=== PATIENT | female | born 1995 | race Caucasian/White ===

== ENCOUNTER 2020-11-15 10:37 | Outpatient (REF) | payer OTHER, SELFPAY ==
[2020-11-15 12:48] LABS: TSH reflex Free T4 0.44 mIU/mL (0.32-4.0)
[2020-11-16 09:02] LABS: Prolactin 7.5 ng/mL
[2020-11-16 13:20] LABS: BV Int Neg Control Negative (Negative); BV Int Pos Control Positive (Positive)
[2020-11-16 17:43] LABS: C. trachomatis RNA TMA NOT DETECTED (NOT DETECTED); N. gonorrhoeae RNA TMA NOT DETECTED (NOT DETECTED)
[2020-11-18 08:04] LABS: HIV AB/AG Nonreactive (Nonreactive); HIV Num 1 0.05 S/CO (0.00-0.99)
[2020-11-18 08:24] LABS: HBsAGNum1 0.17 S/CO (0.00-0.99); Hepatitis B Surface Antigen Negative (Negative)
[2020-11-18 14:26] LABS: Syphilis Screen Nonreactive (Nonreactive)
== END 2020-11-15 10:38 | disposition home or self-care (01) ==
LOC: HO.LAB 10:37
PROVIDERS: PCP Internal Medicine; Visit Provider Obstetrics & Gynecology
DX: Z01.411 Encounter for gynecological examination (general) (routine) with abnormal findings (principal); Z11.3 Encounter for screening for infections with a predominantly sexual mode of transmission; N93.9 Abnormal uterine and vaginal bleeding, unspecified; N91.2 Amenorrhea, unspecified
CPT/HCPCS: 36415; 84146; 84443; 86780; 87340; 87389; 87480; 87491; 87510; 87591; 87660; 88142

== ENCOUNTER → 2020-11-29 11:01 | Outpatient (BNVA) | payer OTHER, SELFPAY | PROVIDERS: PCP Internal Medicine; Visit Provider Obstetrics & Gynecology ==

== ENCOUNTER 2021-02-17 09:43 | Outpatient (REF) | payer OTHER, SELFPAY ==
[2021-02-18 06:00] LABS: CT PCR NOT DETECTED (Not Detect.); NG PCR NOT DETECTED (Not Detect.)
[2021-02-18 12:35] LABS: BV Int Neg Control Negative (Negative); BV Int Pos Control Positive (Positive)
== END 2021-02-17 09:44 | disposition home or self-care (01) ==
LOC: HO.LAB 09:43
PROVIDERS: PCP Internal Medicine; Visit Provider Obstetrics & Gynecology
DX: Z11.3 Encounter for screening for infections with a predominantly sexual mode of transmission (principal); N76.0 Acute vaginitis
CPT/HCPCS: 87480; 87491; 87510; 87591; 87660; 99212

== ENCOUNTER → 2021-05-06 12:47 | Outpatient (BNVA) | payer OTHER, SELFPAY | PROVIDERS: PCP Internal Medicine; Visit Provider Obstetrics & Gynecology ==

== ENCOUNTER 2021-07-02 12:37 | Outpatient (REF) | payer OTHER, SELFPAY ==
[2021-07-02 13:51] LABS: Appearance Urine CLEAR; Color Urine YELLOW; Glucose Urine UA NEG (NEG); Leukocyte Esterase Urine 3+ (NEG); Nitrite Urine POS (NEG); UACC Culture Trigger YES; Urine Blood 3+ (NEG); Urine Ketones NEG (NEG); Urine Protein TRACE MG/DL (NEG-TRACE)
[2021-07-02 14:06] LABS: Bacteria Urine 2+ /LPF; Granular Casts Urine 0-2 /LPF; Squamous Epithelial Cell Urine 3+ /LPF
== END 2021-07-02 12:38 | disposition home or self-care (01) ==
LOC: HO.LAB 12:37
PROVIDERS: PCP Internal Medicine; Visit Provider Internal Medicine
DX: R30.0 Dysuria (principal)
CPT/HCPCS: 81001; 87086; 87088; 87186

== ENCOUNTER 2021-12-23 12:40 | Outpatient (REF) | payer OTHER, SELFPAY ==
[2021-12-23 13:47] LABS: MANUAL DIFF FLAG NO
[2021-12-23 13:52] LABS: Basophils Percent Auto 0.3 % (0-2); Eosinophils Absolute Auto 0.2 X10*3/uL (0.0-0.4); Eosinophils Percent Auto 1.5 % (0-4); Hematocrit 38.8 % (37.0-47.0); Hemoglobin 13.1 g/dl (12.0-16.0); Imm Gran Abs Auto 0.06 X10*3/uL (0.00-0.03); Imm Gran Pct Auto 0.5 % (0.0-0.4); Lymphocytes Percent Auto 25.4 % (20-40); Mean Corpuscular HGB Conc 33.8 g/dl (31.0-35.0); Mean Corpuscular Hemoglobin 29.6 pg (27.0-33.0); Mean Corpuscular Volume 87.6 fL (80.0-98.0); Mean Platelet Volume 10.2 fL (9.4-12.3); Monocytes Absolute Auto 0.8 X10*3/uL (0.1-1.2); Monocytes Percent Auto 6.9 % (2-11); Neutrophils Absolute Auto 7.7 x10*3/uL (2.0-8.3); Neutrophils Percent Auto 65.4 % (45-73); Platelet Count 336 X10*3/uL (160-400); Red Blood Count 4.43 X10*6/uL (4.20-5.50); Red Cell Distribution Width 12.9 % (11.0-16.0); White Blood Count 11.8 X10*3/uL (4.8-10.8)
[2021-12-23 13:57] LABS: INTERNATIONAL NORM RATIO 1.1 (0.9-1.1); Prothrombin Time 12.5 SEC (9.9-13.0)
[2021-12-23 14:00] LABS: Partial Thromboplastin Time 42.4 SEC (24.1-38.0)
[2021-12-23 14:24] LABS: Alanine Aminotransferase 15 U/L (0-31); Albumin Level 4.2 g/dL (3.5-5.0); Alkaline Phosphatase 80 U/L (39-117); Anion Gap 12 (12-20); Aspartate Amino Transferase 16 U/L (5-31); Bilirubin Total 0.4 mg/dL (0.0-1.0); Blood Urea Nitrogen 11 mg/dL (9-16); Calcium 9.8 mg/dL (8.4-10.2); Carbon Dioxide 24 mmol/L (22-29); Chloride 105 mmol/L (96-108); Estimated Glomerular Filt Rate > 60; Glucose Random 74 mg/dL (60-115); Potassium 4.1 mmol/L (3.3-5.1); Sodium 137 mmol/L (135-145); Total Protein 7.3 g/dL (6.5-8.0)
[2021-12-23 14:31] LABS: HCG Quantitative < 2 mIU/mL; TSH reflex Free T4 0.79 uIU/mL (0.32-4.0)
[2021-12-24 08:02] LABS: HIV AB/AG Nonreactive (Nonreactive); HIV Num 1 0.07 S/CO (0.00-0.99)
[2021-12-24 13:02] LABS: LDL Cholesterol Direct 125 mg/dL (<100)
== END 2021-12-23 12:41 | disposition home or self-care (01) ==
LOC: HO.HMGCLDS 12:40
PROVIDERS: PCP Internal Medicine; Visit Provider Internal Medicine
DX: Z01.818 Encounter for other preprocedural examination (principal); Z11.4 Encounter for screening for human immunodeficiency virus [HIV]; E66.09 Other obesity due to excess calories
CPT/HCPCS: 36415; 80053; 83721; 84443; 84702; 85025; 85610; 85730; 87389

== ENCOUNTER 2022-01-02 10:20 | Outpatient (REF) | payer OTHER, SELFPAY ==
--- NOTE | ~2022-01-02 | XR_ITS ---
EXAMINATION: XR CHEST CLINICAL INFORMATION: Preop COMPARISON: Chest x-ray January 2020 TECHNIQUE: 2 views of the chest were obtained. FINDINGS: No significant abnormality is noted involving the heart, lungs, mediastinum, bony thorax or soft tissues. XR/XR chest 2V IMPRESSION: Unremarkable examination.
--- NOTE | 2022-01-02 11:02 | ECG_ITS ---
Test Reason : PREOP Blood Pressure : / mmHG Vent. Rate : 081 BPM Atrial Rate : 081 BPM P-R Int : 136 ms QRS Dur : 082 ms QT Int : 376 ms P-R-T Axes : 009 054 026 degrees QTc Int : 436 ms Normal sinus rhythm Normal ECG When compared with ECG of 27-MAR-2017 19:20, Vent. rate has decreased BY 49 BPM T wave amplitude has increased in Lateral leads Referred By: Faisal De León Electronically Signed By:VIKAS WINTERS
[2022-01-02 11:18] LABS: MANUAL DIFF FLAG NO
[2022-01-02 11:39] LABS: Basophils Percent Auto 0.5 % (0-2); Eosinophils Absolute Auto 0.2 X10*3/uL (0.0-0.4); Eosinophils Percent Auto 2.3 % (0-4); Hematocrit 42.3 % (37.0-47.0); Hemoglobin 13.8 g/dl (12.0-16.0); Imm Gran Abs Auto 0.01 X10*3/uL (0.00-0.03); Imm Gran Pct Auto 0.1 % (0.0-0.4); Lymphocytes Absolute Auto 2.4 X10*3/uL (1.2-4.9); Lymphocytes Percent Auto 33.2 % (20-40); Mean Corpuscular HGB Conc 32.6 g/dl (31.0-35.0); Mean Corpuscular Hemoglobin 29.3 pg (27.0-33.0); Mean Corpuscular Volume 89.8 fL (80.0-98.0); Mean Platelet Volume 9.9 fL (9.4-12.3); Monocytes Absolute Auto 0.7 X10*3/uL (0.1-1.2); Monocytes Percent Auto 8.8 % (2-11); Neutrophils Percent Auto 55.1 % (45-73); Platelet Count 370 X10*3/uL (160-400); Red Blood Count 4.71 X10*6/uL (4.20-5.50); Red Cell Distribution Width 12.8 % (11.0-16.0); White Blood Count 7.4 X10*3/uL (4.8-10.8)
[2022-01-02 11:48] LABS: INTERNATIONAL NORM RATIO 1.1 (0.9-1.1); Prothrombin Time 12.1 SEC (9.9-13.0)
[2022-01-02 11:51] LABS: Partial Thromboplastin Time 41.8 SEC (24.1-38.0)
[2022-01-02 11:55] LABS: Estimated Average Glucose 97 mg/dL
[2022-01-02 12:07] LABS: Appearance Urine CLEAR; Color Urine YELLOW; Glucose Urine UA NEG (NEG); Leukocyte Esterase Urine NEG (NEG); Nitrite Urine NEG (NEG); PH 6.5 (5.0-8.0); Urine Blood NEG (NEG); Urine Ketones NEG (NEG); Urine Protein NEG (NEG-TRACE)
[2022-01-02 12:16] LABS: Alanine Aminotransferase 15 U/L (0-31); Albumin Level 4.4 g/dL (3.5-5.0); Alkaline Phosphatase 87 U/L (39-117); Anion Gap 12 (12-20); Aspartate Amino Transferase 16 U/L (5-31); Bilirubin Total 0.6 mg/dL (0.0-1.0); Blood Urea Nitrogen 11 mg/dL (9-16); Calcium 10.1 mg/dL (8.4-10.2); Carbon Dioxide 25 mmol/L (22-29); Chloride 105 mmol/L (96-108); Estimated Glomerular Filt Rate > 60; Glucose Random 88 mg/dL (60-115); Potassium 4.4 mmol/L (3.3-5.1); Sodium 138 mmol/L (135-145); Total Protein 7.6 g/dL (6.5-8.0)
[2022-01-02 12:27] LABS: HIV AB/AG Nonreactive (Nonreactive); HIV Num 1 0.06 S/CO (0.00-0.99)
[2022-01-02 12:31] LABS: HCG Quantitative < 2 mIU/mL; Thyroid Stimulating Hormone 0.55 uIU/mL (0.32-4.0)
== END 2022-01-02 10:21 | disposition home or self-care (01) ==
LOC: HO.XRAY 10:20
PROVIDERS: PCP Internal Medicine; Visit Provider Plastic Surgery
DX: Z01.818 Encounter for other preprocedural examination (principal)
CPT/HCPCS: 36415; 71046; 80053; 81003; 83036; 84436; 84443; 84481; 84702; 85025; 85610; 85730; 87389; 93005

== ENCOUNTER 2022-02-08 17:45 | Inpatient (IN) | payer OTHER, SELFPAY ==
--- NOTE | ~2022-02-08 | CT_ITS ---
EXAMINATION: CT ABDOMEN AND PELVIS WITH CONTRAST CLINICAL INFORMATION: Abdominal wall infection postoperatively COMPARISON: None TECHNIQUE: Multidetector volumetric images were obtained from the superior aspect of the liver through the pubic symphysis following administration 85 mL of Omnipaque 350 intravenous contrast. Sagittal and coronal reformatted images were obtained on the technologist's workstation. Oral contrast: No This CT examination was performed using dose optimization techniques as appropriate, variously including the following: *Automated exposure control *Adjustment of mA and/or kV according to patient size (this includes techniques or standardized protocols for targeted exams where dose is matched to indication/reason for exam; i.e. extremities or head) *Use of iterative reconstruction technique DLP: 663 mGy-cm FINDINGS: LUNG BASES: The visualized lung bases are unremarkable. LIVER, GALLBLADDER, AND BILIARY TREE: The liver is normal in size, shape, and attenuation. No focal hepatic lesion or biliary ductal dilatation is present. The gallbladder is unremarkable with no evidence of radiopaque gallstones, gallbladder wall thickening, or obvious pericholecystic inflammatory changes. PANCREAS: Unremarkable. SPLEEN: Unremarkable. ADRENAL GLANDS: Unremarkable. KIDNEYS AND URETERS: The kidneys are normal in size, shape, and attenuation. No hydronephrosis or hydroureter. 0.4 cm left upper pole renal calculus is 9 cm from the posterior axillary line. There is also a 0.2 cm left midpole calculus. BLADDER: Unremarkable. GASTROINTESTINAL TRACT: The stomach is unremarkable. Normal caliber of the small bowel. No obstruction. Normal appendix. No colonic wall thickening or inflammation. No free air. No free fluid. ABDOMINAL WALL: Postsurgical appearance of the abdominal wall. Diffuse anasarca. There are multiple areas of gas and fluid along the abdominal wall, greatest in the left anterior abdominal wall. No rim-enhancing collection seen at this time in this area. There is more dependent fluid along the posterior abdominal wall, superficial to the paraspinal musculature. This has a thin wall, suggestive of developing collection. This measures approximately 19 cm transverse by 2 cm AP by 18 cm CC . LYMPH NODES: Normal. VASCULAR: Unremarkable. PELVIC VISCERA: The uterus and adnexa are unremarkable. OSSEOUS STRUCTURES: No acute or suspicious osseous abnormality. CT/CT abdomen pelvis w con IMPRESSION: Diffuse edema throughout the abdominal wall with multiple foci of gas. Along the posterior abdominal wall there appears to be early thinwall formation surrounding an area of fluid which could represent early collection. Nonobstructing left renal calculi. Fleischner guidelines were followed.
--- NOTE | ~2022-02-08 | XR_ITS ---
EXAMINATION: XR CHEST CLINICAL INFORMATION: Short of breath COMPARISON: 01/02/2022 TECHNIQUE: Frontal view of the chest was obtained. FINDINGS: Cardiac leads overlie the chest. The lungs are well expanded. There is no focal consolidation, edema, or effusion. No pneumothorax. The cardiomediastinal silhouette is within normal limits. No acute osseous abnormality. XR/XR chest 1V IMPRESSION: Clear lungs.
[2022-02-08 18:04] VITALS: BP 134/78; PULSE 127; RESP 18; TEMP 37.2; O2SAT 98; BMI 35.9
[2022-02-08 18:13] LABS: MANUAL DIFF FLAG NO
[2022-02-08 18:14] LABS: Basophils Percent Auto 0.1 % (0-2); Eosinophils Absolute Auto 0.1 X10*3/uL (0.0-0.4); Eosinophils Percent Auto 0.7 % (0-4); Hematocrit 29.6 % (37.0-47.0); Hemoglobin 9.9 g/dl (12.0-16.0); Imm Gran Abs Auto 0.09 X10*3/uL (0.00-0.03); Imm Gran Pct Auto 0.6 % (0.0-0.4); Lymphocytes Absolute Auto 1.8 X10*3/uL (1.2-4.9); Lymphocytes Percent Auto 11.2 % (20-40); Mean Corpuscular HGB Conc 33.4 g/dl (31.0-35.0); Mean Corpuscular Hemoglobin 29.6 pg (27.0-33.0); Mean Corpuscular Volume 88.4 fL (80.0-98.0); Mean Platelet Volume 8.2 fL (9.4-12.3); Monocytes Absolute Auto 1.1 X10*3/uL (0.1-1.2); Monocytes Percent Auto 6.9 % (2-11); Neutrophils Absolute Auto 12.7 x10*3/uL (2.0-8.3); Neutrophils Percent Auto 80.5 % (45-73); Platelet Count 556 X10*3/uL (160-400); Red Blood Count 3.35 X10*6/uL (4.20-5.50); Red Cell Distribution Width 13.1 % (11.0-16.0); White Blood Count 15.7 X10*3/uL (4.8-10.8)
[2022-02-08 18:27] LABS: Anion Gap 13 (12-20); Blood Urea Nitrogen 7 mg/dL (9-16); Calcium 9.3 mg/dL (8.4-10.2); Carbon Dioxide 26 mmol/L (22-29); Chloride 103 mmol/L (96-108); Creatinine Clr Calc Pharmacy 114.3; Estimated Glomerular Filt Rate > 60; Glucose Random 125 mg/dL (60-115); Potassium 3.8 mmol/L (3.3-5.1); Sodium 138 mmol/L (135-145)
[2022-02-08 22:07] VITALS: BP 119/69; PULSE 121; RESP 25; TEMP 36.8; O2SAT 99
[2022-02-08 22:37] LABS: IDNOW Serial# 16C4AD1C; Influenza A Negative (Negative); Influenza B2 Negative (Negative)
--- NOTE | 2022-02-08 22:40 | ECG_ITS ---
Test Reason : tachycardia Blood Pressure : / mmHG Vent. Rate : 128 BPM Atrial Rate : 128 BPM P-R Int : 142 ms QRS Dur : 080 ms QT Int : 302 ms P-R-T Axes : 046 045 022 degrees QTc Int : 440 ms Sinus tachycardia Otherwise normal ECG When compared with ECG of 02-JAN-2022 11:19, Vent. rate has increased BY 47 BPM T wave amplitude has decreased in Lateral leads Referred By: Yamileth Adame Electronically Signed By:VIKAS WINTERS
--- NOTE | 2022-02-08 22:41 | ED.FEVER ---
HPI - Fever General Chief Complaint: Fever Stated Complaint: SOB/slight fever/insicion leaking Time Seen by Provider: 02/08/22 22:04 History of Present Illness HPI Narrative: Patient is a 26-year-old female presents today with having fever up to 102. Patient had abdominal plasty done in [place] approximately 10 days prior. Noticing fever since yesterday. Generalized malaise. Redness around the wound in her abdomen. No nausea no vomiting no systemic complaints. Patient from home. No coughing or congestion. No generalized malaise. No pain on urination. No vaginal discharge. Does not think she is . Patient immunized or COVID. Related Data Home Medications Medication Instructions Recorded Confirmed No Known Home Meds 12/23/21 12/23/21 Allergies Allergy/AdvReac Type Severity Reaction Status Date / Time No Known Allergies Allergy Verified 02/08/22 18:03 [No Known Allergies*] Review of Systems Review of Systems: Positive fever positive generalized malaise positive discharge from the wound. Positive redness. Patient from home. [facility] Past Medical History Attestation statement: The following information was validated with the patient. Medical History Anxiety Depression Surgical History Hx of section Family History Family History Other Mental health disorder Social History Social History Housing: House Alcohol intake: never Patient Tobacco Use Status: Never used Tobacco Use of substances other than those prescribed or required for medical reasons: No Advance Directives: No Advance Directives Information Provided: No Current occupational status: employed Gender identity: Female Physical Exam Vital Signs: Vital Signs: Last Vital Signs Temp 98.3 F 02/08/22 22:07 Pulse 122 H 02/09/22 00:06 Resp 19 02/09/22 00:06 BP 126/81 02/09/22 00:06 Pulse Ox 99 02/09/22 00:06 BMI result Body Mass Index 35.9 Appearance: Alert. Oriented X3. No acute distress. Eyes: Pupils equal, round and reactive to light. ENT: Pharynx normal. Neck: Normal inspection. Neck supple. No lymph nodes noted. No crepitus CVS: Tachycardic but regular. Pulses normal. Normal S1 and S2 Respiratory: No respiratory distress. Breath sounds normal. No Wheezing. No rales Abdomen: Soft and nontender. No rigidity. No distention. good BS x4. There is a wound in the lower abdomen. Redness around the wound. There is area of discharge that is purulent. No gross fluctuance noted. Skin: Please see above Normal skin turgor. Extremities: No lower extremity edema. Neurovascular intact to all extremities. No Lacerations. No Rash Neuro: Oriented X 3. No motor deficit. No sensory deficit. Moving all extermities. No slurred speech MDM - Fever Medical Records Medical records narrative: 22:30 Pt initially evluated by me. 23:00 Positive fever at home positive elevated white count positive tachycardia. Positive increased respiratory rate cannot exclude the possibility of infection as a possible cause. Patient given 30 cc/kilos of IV fluids. Culture obtained antibiotics started. Both Rocephin and vancomycin was ordered. Given hx of abdominal wound source. Case discussed with surgery. Will evaluate patient. 00:40 Patient seen by General surgery here in the emergency department will open the wound somewhat. Will admit patient for further monitoring. In stable condition Lab Data Result diagrams: 02/08/22 18:09 02/08/22 18:09 Labs: Lab Results 02/08/22 02/08/22 02/08/22 Range/Units 18:09 18:09 22:15 WBC 15.7 H (4.8-10.8) X10*3/uL RBC 3.35 L D (4.20-5.50) X10*6/uL Hgb 9.9 L D (12.0-16.0) g/dl Hct 29.6 L D (37.0-47.0) % MCV 88.4 (80.0-98.0) fL MCH 29.6 (27.0-33.0) pg MCHC 33.4 (31.0-35.0) g/dl RDW 13.1 (11.0-16.0) % Plt Count 556 H D (160-400) X10*3/uL MPV 8.2 L (9.4-12.3) fL Immature Gran % (Auto) 0.6 H (0.0-0.4) % Neut % (Auto) 80.5 H (45-73) % Lymph % (Auto) 11.2 L (20-40) % [place] % (Auto) 6.9 (2-11) % Eos % (Auto) 0.7 (0-4) % Baso % (Auto) 0.1 (0-2) % Lymph # (Auto) 1.8 (1.2-4.9) X10*3/uL [place] # (Auto) 1.1 (0.1-1.2) X10*3/uL Eos # (Auto) 0.1 (0.0-0.4) X10*3/uL Baso # (Auto) 0.0 (0.0-0.2) X10*3/uL Abs Immat Gran (auto) 0.09 H (0.00-0.03) X10*3/uL Absolute Neuts (auto) 12.7 H (2.0-8.3) x10*3/uL Absolute Nucleated RBC 0.000 (0.0-0.012) X10*3/uL Nucleated RBC % (auto) 0.0 (0.0-0.2) /100WBC Sodium 138 (135-145) mmol/L Potassium 3.8 (3.3-5.1) mmol/L Chloride 103 (96-108) mmol/L Carbon Dioxide 26 (22-29) mmol/L Anion Gap 13 (12-20) BUN 7 L (9-16) mg/dL Creatinine 0.73 (0.5-1.4) mg/dL Estim Creat Clear Calc 114.3 Estimated GFR > 60 Random Glucose 125 H (60-115) mg/dL Lactic Acid (0.5-2.0) mmol/L Calcium 9.3 D (8.4-10.2) mg/dL Beta HCG, Quant < 2 mIU/mL COVID-19 (JOSSE) (Negative) COVID-19 Clin Com Influenza Type A (ZION) Negative (Negative) Influenza Type B (ZION) Negative (Negative) Influenza A & B Note See Note 02/08/22 02/08/22 Range/Units 22:15 22:42 WBC (4.8-10.8) X10*3/uL RBC (4.20-5.50) X10*6/uL Hgb (12.0-16.0) g/dl Hct (37.0-47.0) % MCV (80.0-98.0) fL MCH (27.0-33.0) pg MCHC (31.0-35.0) g/dl RDW (11.0-16.0) % Plt Count (160-400) X10*3/uL MPV (9.4-12.3) fL Immature Gran % (Auto) (0.0-0.4) % Neut % (Auto) (45-73) % Lymph % (Auto) (20-40) % [place] % (Auto) (2-11) % Eos % (Auto) (0-4) % Baso % (Auto) (0-2) % Lymph # (Auto) (1.2-4.9) X10*3/uL [place] # (Auto) (0.1-1.2) X10*3/uL Eos # (Auto) (0.0-0.4) X10*3/uL Baso # (Auto) (0.0-0.2) X10*3/uL Abs Immat Gran (auto) (0.00-0.03) X10*3/uL Absolute Neuts (auto) (2.0-8.3) x10*3/uL Absolute Nucleated RBC (0.0-0.012) X10*3/uL Nucleated RBC % (auto) (0.0-0.2) /100WBC Sodium (135-145) mmol/L Potassium (3.3-5.1) mmol/L Chloride (96-108) mmol/L Carbon Dioxide (22-29) mmol/L Anion Gap (12-20) BUN (9-16) mg/dL Creatinine (0.5-1.4) mg/dL Estim Creat Clear Calc Estimated GFR Random Glucose (60-115) mg/dL Lactic Acid 0.9 (0.5-2.0) mmol/L Calcium (8.4-10.2) mg/dL Beta HCG, Quant mIU/mL COVID-19 (JOSSE) Negative (Negative) COVID-19 Clin Com See Note Influenza Type A (ZION) (Negative) Influenza Type B (ZION) (Negative) Influenza A & B Note Discharge Plan Discharge Clinical Impression: Complicated wound infection Prescriptions: No Action No Known Home Meds 0RF
[2022-02-08 22:51] LABS: HCG Quantitative < 2 mIU/mL
[2022-02-08 22:57] LABS: COVID-19 Test Negative (Negative)
[2022-02-08] MEDS: 0.9 % Sodium Chloride 2,585.49 ML 2585.49 ML IV (23:00)
[2022-02-08] MEDS: cefTRIAXone sodium 1 GM in 0.9 % Sodium Chloride 50 ML IV (23:00)
[2022-02-08 23:03] LABS: Lactic Acid 0.9 mmol/L (0.5-2.0)
--- NOTE | 2022-02-08 23:41 | PC.NURSE ---
IV access obtained 20ga in Left forearm. Pt was difficulty stick, nurses and Dr. Rodriguez attempted US IV. Pt in CT scan right now
[2022-02-08] MEDS: iohexoL 350 MG/ML 100 ML INFUS..BTL 85 ML IV (23:54)
[2022-02-09] VITALS (9 sets, daily range): BP systolic 101–126; BP diastolic 50–81; PULSE 64–122; RESP 17–31; TEMP 36.3–36.9; O2SAT 96–100; BMI 36.9
[2022-02-09] MEDS: Ketorolac Tromethamine 30 MG/ML VIAL IVPUSH (00:12)
[2022-02-09] MEDS: vancomycin HCL 1,000 MG in 0.9 % Sodium Chloride 250 ML 270 MG IV (01:12)
--- NOTE | 2022-02-09 01:12 | PM.HPGS ---
History of Present Illness History of Present Illness Date of Service: 02/09/22 Chief complaint: Abdominal wound infection Narrative: Mary Junior is a 26 year old female who underwent abdominoplasty in [place] on 01/29 and had drains removed on 02/05. She returned to the area here where she lives. Last few days and today area red and draining pus. She comes in now to the ER. denies fever, anxious. 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 Review of Systems Review of Systems: Yes all other systems are reviewed and are negative PMFSH Past Medical History Medical History Anxiety Depression Family History Family History Other Mental health disorder Surgical History Surgical History Hx of section Social History Social History Housing: House Alcohol intake: never Patient Tobacco Use Status: Never used Tobacco Use of substances other than those prescribed or required for medical reasons: No Advance Directives: No Advance Directives Information Provided: No Current occupational status: employed Gender identity: Female Meds Allergies Allergy/AdvReac Type Severity Reaction Status Date / Time No Known Allergies Allergy Verified 02/08/22 18:03 [No Known Allergies*] Home Medications Medication Instructions Recorded Confirmed Last Taken Type No Known Home Meds 12/23/21 12/23/21 Unknown History Physical Exam Vital Signs: Vital Signs: Last Vital Signs Temp 98.3 F 02/08/22 22:07 Pulse 122 H 02/09/22 00:06 Resp 19 02/09/22 00:06 BP 126/81 02/09/22 00:06 Pulse Ox 99 02/09/22 00:06 BMI result Body Mass Index 35.9 Const: General: cooperative, healthy appearing, comfortable and no acute distress Orientation/consciousness: oriented to person, oriented to place and oriented to time Resp: Effort & Inspection: normal respiratory effort Auscultation: clear to auscultation bilaterally Cardio: Rate: regular rate Rhythm: regular rhythm GI: Other: soft nontender nondistended Skin: Other: pt with abdominoplasty scar mostly healthy and intact. central midline area with increased surrounding skin erythema and purulent drainage from the central aspect of the T-junction, mildly tender Neuro: General: oriented to person, oriented to place and oriented to time Extrem: General: Yes normal to inspection Results Results Labs: Short CBC 02/08/22 Range/Units 18:09 WBC 15.7 H (4.8-10.8) X10*3/uL Hgb 9.9 L D (12.0-16.0) g/dl Hct 29.6 L D (37.0-47.0) % Plt Count 556 H D (160-400) X10*3/uL BMP 02/08/22 18:09 Sodium 138 Potassium 3.8 Chloride 103 Carbon Dioxide 26 BUN 7 L Creatinine 0.[address] scan report/results: report reviewed and image reviewed CT scan - pelvis: report reviewed and image reviewed Assessment and Plan (1) Complicated wound infection: Status: Acute Plan pt about 2.5 weeks s/p abdominoplasty operation in [place] now home here with wound infection - wbc elevated and ct scan showing air fluid pockets ant abdominal wall and ? posterior area at paraspinal - not tender there and only area concerning is midline area with erythema and draining pus. plan admit, iv antibx, cultrues done - f.u on results po pain meds I&D of the midline wound abscess Quality Stroke Does the patient have a stroke diagnosis?: No VTE Prior VTE?: No VTE Risk Level:: Medical - low VTE Device Contraindication: Treatment Not Indicated VTE Drug Contraindication: Treatment Not Indicated Procedures Date of Service Date of Service: 02/09/22 Abscess I/D Consent for Procedure: Elective - informed consent obtained Site: abdomen Sedation/analgesia: none Anesthetic used: lidocaine 1% Technique: incised with #11 blade Amount of fluid (mL): 10 Irrigation: Yes Packing used?: plain Additional comments: area cleaned with betadine and numbed with lidocaine and 11 blade used to open the T- area of the wound - larger pocket runing midline superiorly and deep - area irrigated with about 30 cc of saline and packed with packing gauze - cultures had been taken before. pt tolerated this well
[2022-02-09] MEDS: Piperacillin Sodium/Tazobactam 3.375 GM in 0.9 % Sodium Chloride 50 ML IV ×2 (06:14→11:27)
--- NOTE | 2022-02-09 08:22 | P.PNGS_ITS ---
Subjective Subjective Date of Service: 02/09/22 Interval history: States that she feels better No events reported overnight I and D done at bedside last night by Dr. Bobo Physical Exam Vital Signs: Vital Signs: Last Vital Signs Temp 98.5 F 02/09/22 06:51 Pulse 105 H 02/09/22 06:51 Resp 22 H 02/09/22 06:51 BP 101/59 L 02/09/22 06:51 Pulse Ox 97 02/09/22 06:51 BMI result Body Mass Index 35.9 Const: General: comfortable and no acute distress Resp: Effort & Inspection: normal respiratory effort Cardio: Rate: regular rate GI: Other: I&D site with packing, minimal residual redness, no fluctuance nor induration Objective Data Active Medications Piperacillin Sod/Tazobactam (Sod 3.375 gm/ Sodium Chloride) 50 mls @ 100 mls/hr IV Q6H [facility] Last Infusion: 02/09/22 07:03 Dose: 0 mls/hr Documented by: JOSE DAVID Ibuprofen (Ibuprofen 400 Mg Tablet) 400 mg PO Q6H PRN PRN Reason: Fever or Pain, Mild (Pain Scale 1-3) Ondansetron HCl (Ondansetron Hcl 4 Mg/2 Ml Vial) 4 mg IVPUSH Q8H PRN PRN Reason: Nausea and Vomiting Oxycodone HCl (Oxycodone Hcl Immed Release 5 Mg Tablet) 5 mg PO Q6H PRN PRN Reason: Pain, Severe (Pain Scale 7-10) Sodium Chloride (0.9 % Sodium Chloride Flush 3 Ml Syringe) 3 ml IVFLUSH QSHIFT [facility] Last Admin: 02/09/22 07:03 Dose: Not Given Documented by: JOSE DAVID Non-Admin Reason: Med Not Available Labs CBC & Chem 7: 02/08/22 18:09 02/08/22 18:09 Labs: Laboratory Results - last 24 hr 02/08/22 02/08/22 02/08/22 18:09 18:09 22:15 MCV 88.4 MCH 29.6 MCHC 33.4 RDW 13.1 Plt Count 556 H D MPV 8.2 L Immature Gran % (Auto) 0.6 H Neut % (Auto) 80.5 H Lymph % (Auto) 11.2 L [place] % (Auto) 6.9 Eos % (Auto) 0.7 Baso % (Auto) 0.1 Lymph # (Auto) 1.8 [place] # (Auto) 1.1 Eos # (Auto) 0.1 Baso # (Auto) 0.0 Abs Immat Gran (auto) 0.09 H Absolute Neuts (auto) 12.7 H Absolute Nucleated RBC 0.000 Nucleated RBC % (auto) 0.0 Anion Gap 13 Estim Creat Clear Calc 114.3 Estimated GFR > 60 Random Glucose 125 H Lactic Acid Calcium 9.3 D Beta HCG, Quant < 2 COVID-19 (JOSSE) COVID-19 Clin Com Influenza Type A (ZION) Negative Influenza Type B (ZION) Negative Influenza A & B Note See Note 02/08/22 02/08/22 22:15 22:42 MCV MCH MCHC RDW Plt Count MPV Immature Gran % (Auto) Neut % (Auto) Lymph % (Auto) [place] % (Auto) Eos % (Auto) Baso % (Auto) Lymph # (Auto) [place] # (Auto) Eos # (Auto) Baso # (Auto) Abs Immat Gran (auto) Absolute Neuts (auto) Absolute Nucleated RBC Nucleated RBC % (auto) Anion Gap Estim Creat Clear Calc Estimated GFR Random Glucose Lactic Acid 0.9 Calcium Beta HCG, Quant COVID-19 (JOSSE) Negative COVID-19 Clin Com See Note Influenza Type A (ZION) Influenza Type B (ZION) Influenza A & B Note Procedures Date of Service Date of Service: 02/09/22 Progress Note: A&P Assessment and plan (1) Complicated wound infection: Status: Acute Assessment and Plan: Cellulitis much improved I withdrew the packing a little bit Dressings changed Continue IV antibiotics Plan to remove the packing completely tomorrow Doing better Fall Risk Details Current Medications: Current Medications Piperacillin Sod/Tazobactam (Sod 3.375 gm/ Sodium Chloride) 50 mls @ 100 mls/hr IV Q6H [facility] Last Infusion: 02/09/22 07:03 Dose: Infused Documented by: Ibuprofen (Ibuprofen 400 Mg Tablet) 400 mg PO Q6H PRN PRN Reason: Fever or Pain, Mild (Pain Scale 1-3) Ondansetron HCl (Ondansetron Hcl 4 Mg/2 Ml Vial) 4 mg IVPUSH Q8H PRN PRN Reason: Nausea and Vomiting Oxycodone HCl (Oxycodone Hcl Immed Release 5 Mg Tablet) 5 mg PO Q6H PRN PRN Reason: Pain, Severe (Pain Scale 7-10) Sodium Chloride (0.9 % Sodium Chloride Flush 3 Ml Syringe) 3 ml IVFLUSH QSHIFT [facility] Last Admin: 02/09/22 07:03 Dose: Not Given Documented by: Time Spent With Patient Time: Total time spent is greater than 50% in coordination of care (as documented) at patient's floor/unit and/or counseling patient: Quality Stroke Does the patient have a stroke diagnosis?: No VTE Prior VTE?: No VTE Risk Level:: Medical - low VTE Device Contraindication: Treatment Not Indicated VTE Drug Contraindication: Treatment Not Indicated
--- NOTE | 2022-02-09 08:27 | PHA.MEDREC ---
Pharmacy Consult ? Medication Reconciliation Pharmacy has completed the medication reconciliation. Pt is not currently taking prescription medications, just over the counter vitamins and supplements. States that she takes Ravi-plex twice weekly for iron deficiency. Lubna Tam, PharmD
[2022-02-09] MEDS: Ibuprofen 400 MG TABLET PO ×2 (09:24→18:51)
--- NOTE | 2022-02-09 11:23 | MHC.CM.PN ---
PT REPORTS SHE LIVES AT HOME WITH HER FAMILY AND IS INDEPENDENT WITH ALL CARE PT DENIES USE OF DME OR HOME SERVICES PT DECLINES TO COMPLETE A HCP PCP: KOBI ESPINOZA PT REPORTS SHE IS COVID-19 VACCINATED CURRENT DC PLAN IS HOME WITH NO SERVICES FAMILY TO TRANSPORT
[2022-02-09] MEDS: 0.9 % Sodium Chloride Flush 3 ML SYRINGE IVFLUSH (15:06)
--- NOTE | 2022-02-09 17:40 | PC.NURSE ---
patient's IV causing significant pain. IV removed due to discomfort and possible infiltration. attempted new IV x2, unsuccessful. patient requesting to not have IV placed at this time and instead recieve abx orally. admitting provider contacted and made aware of patient request. awaiting further follow up from provider
[2022-02-10 07:08] LABS: MANUAL DIFF FLAG NO
[2022-02-10 07:13] LABS: Basophils Percent Auto 0.3 % (0-2); Eosinophils Absolute Auto 0.2 X10*3/uL (0.0-0.4); Eosinophils Percent Auto 1.6 % (0-4); Hematocrit 27.4 % (37.0-47.0); Hemoglobin 8.8 g/dl (12.0-16.0); Imm Gran Pct Auto 0.7 % (0.0-0.4); Lymphocytes Absolute Auto 1.7 X10*3/uL (1.2-4.9); Mean Corpuscular HGB Conc 32.1 g/dl (31.0-35.0); Mean Corpuscular Volume 90.4 fL (80.0-98.0); Mean Platelet Volume 8.4 fL (9.4-12.3); Monocytes Absolute Auto 1.1 X10*3/uL (0.1-1.2); Neutrophils Absolute Auto 10.2 x10*3/uL (2.0-8.3); Neutrophils Percent Auto 76.4 % (45-73); Platelet Count 512 X10*3/uL (160-400); Red Blood Count 3.03 X10*6/uL (4.20-5.50); Red Cell Distribution Width 13.3 % (11.0-16.0); White Blood Count 13.4 X10*3/uL (4.8-10.8)
[2022-02-10 08:00] VITALS: BP 104/59; PULSE 96; RESP 18; TEMP 36.6; O2SAT 96
[2022-02-10] MEDS: Ibuprofen 400 MG TABLET PO (08:49)
[2022-02-10] MEDS: 0.9 % Sodium Chloride Flush 3 ML SYRINGE IVFLUSH (08:50)
--- NOTE | 2022-02-10 09:00 | P.PNGS_ITS ---
Subjective Subjective Date of Service: 02/10/22 Interval history: feels much better no events overnight says she feels sweeling is much improved Physical Exam Vital Signs: Vital Signs: Last Vital Signs Temp 97.4 F 02/09/22 23:30 Pulse 64 02/09/22 23:30 Resp 18 02/09/22 23:30 BP 120/50 L 02/09/22 23:30 Pulse Ox 100 02/09/22 23:30 BMI result Body Mass Index 36.9 Const: General: comfortable and no acute distress Resp: Effort & Inspection: normal respiratory effort Cardio: Rate: regular rate GI: Other: abdominoplasty incision generally healing, with open I and D site on the T of the incision; packing in place, some scanty drainage Palpation (GI): Soft to palpation and not firm Objective Data Active Medications Doxycycline Hyclate (Doxycycline Hyclate 100 Mg Tablet) 100 mg PO Q12H REPLACED BY [facility] Last Admin: 02/10/22 08:49 Dose: 100 mg Documented by: JOSÉ MANUEL Ibuprofen (Ibuprofen 400 Mg Tablet) 400 mg PO Q6H PRN PRN Reason: Fever or Pain, Mild (Pain Scale 1-3) Last Admin: 02/10/22 08:49 Dose: 400 mg Documented by: JOSÉ MANUEL Ondansetron HCl (Ondansetron Hcl 4 Mg/2 Ml Vial) 4 mg IVPUSH Q8H PRN PRN Reason: Nausea and Vomiting Oxycodone HCl (Oxycodone Hcl Immed Release 5 Mg Tablet) 5 mg PO Q6H PRN PRN Reason: Pain, Severe (Pain Scale 7-10) Sodium Chloride (0.9 % Sodium Chloride Flush 3 Ml Syringe) 3 ml IVFLUSH QSHIFT REPLACED BY [facility] Last Admin: 02/10/22 08:50 Dose: 3 ml Documented by: JOSÉ MANUEL Labs CBC & Chem 7: 02/10/22 07:00 02/08/22 18:09 Labs: Laboratory Results - last 24 hr 02/10/22 07:00 MCV 90.4 MCH 29.0 MCHC 32.1 RDW 13.3 Plt Count 512 H MPV 8.4 L Immature Gran % (Auto) 0.7 H Neut % (Auto) 76.4 H Lymph % (Auto) 13.0 L [place] % (Auto) 8.0 Eos % (Auto) 1.6 Baso % (Auto) 0.3 Lymph # (Auto) 1.7 [place] # (Auto) 1.1 Eos # (Auto) 0.2 Baso # (Auto) 0.0 Abs Immat Gran (auto) 0.10 H Absolute Neuts (auto) 10.2 H Absolute Nucleated RBC 0.000 Nucleated RBC % (auto) 0.0 Microbiology Microbiology Results: Microbiology 02/08/22 22:44 Gram Stain - Final Abdomen - Abdominal Routine Culture - Preliminary Culture in progress. 02/08/22 23:17 Blood Culture - Preliminary Blood - Venous No growth after 24 hours. 02/08/22 22:42 Blood Culture - Preliminary Blood - Venous No growth after 24 hours. Procedures Date of Service Date of Service: 02/10/22 Progress Note: A&P Assessment and plan (1) Complicated wound infection: Status: Acute Assessment and Plan: much improved packing removed dressings changed ok to dc home today on PO Doxy instructed on wound care ffup with Wound Clinic or with ma Fall Risk Details Current Medications: Current Medications Doxycycline Hyclate (Doxycycline Hyclate 100 Mg Tablet) 100 mg PO Q12H REPLACED BY [facility] Last Admin: 02/10/22 08:49 Dose: 100 mg Documented by: Ibuprofen (Ibuprofen 400 Mg Tablet) 400 mg PO Q6H PRN PRN Reason: Fever or Pain, Mild (Pain Scale 1-3) Last Admin: 02/10/22 08:49 Dose: 400 mg Documented by: Ondansetron HCl (Ondansetron Hcl 4 Mg/2 Ml Vial) 4 mg IVPUSH Q8H PRN PRN Reason: Nausea and Vomiting Oxycodone HCl (Oxycodone Hcl Immed Release 5 Mg Tablet) 5 mg PO Q6H PRN PRN Reason: Pain, Severe (Pain Scale 7-10) Sodium Chloride (0.9 % Sodium Chloride Flush 3 Ml Syringe) 3 ml IVFLUSH QSHIFT REPLACED BY [facility] Last Admin: 02/10/22 08:50 Dose: 3 ml Documented by: Time Spent With Patient Time: Total time spent is greater than 50% in coordination of care (as documented) at patient's floor/unit and/or counseling patient: Quality Stroke Does the patient have a stroke diagnosis?: No VTE Prior VTE?: No VTE Risk Level:: Medical - low VTE Device Contraindication: Treatment Not Indicated VTE Drug Contraindication: Treatment Not Indicated
--- NOTE | 2022-02-10 10:22 | MHC.CM.PN ---
Female 26 Ab wound infection dischcharge to home today. Family is providing transport home.
--- NOTE | 2022-02-10 10:57 | P.DS_ITS ---
DS: Providers Provider Date of Service: 02/10/22 Date of admission: 02/09/22 01:08 Primary care physician: Lashay Roach MD Attending physician on admission: Fannie Bobo Attending physician on discharge: Pepe Forman DS: Diagnosis Discharge Diagnosis (1) Complicated wound infection: Status: Acute DS: Summary Hospital Course Hospital Course: BRIEF HPI: Mary Junior is a 26 year old female who underwent abdominoplasty in [place] on 01/29 and had drains removed on 02/05. She returned to the area here where she lives. Last few days and today area red and draining pus. She comes in now to the ER. denies fever, anxious. 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 She had a leukocytosis of 15.[address] scan showed diffuse edema of the abdominal wall with multiple areas of gas and fluid along the abdominal wall, greatest in the left anterior abdominal wall. No rim-enhancing collection seen at this time in this area. HOSPITAL COURSE: The patient was admitted to the surgical service for further treatment of the wound infection and abscess. On exam, there was concern for abscess at the midline of the incision at the T junction which was erythematous and draining pus. She was started on IV zosyn, IVF and PRN analgesics. I & D at the T junction was performed by Dr. Bobo and cultures taken. The wound was packed. She had an uncomplicated hospital stay. Her pain improved significantly and the erythema/edema of the incision improved following the drainage. Her WBC count downtrended the following day. She felt much better. Her vitals were stable. Her packing was removed. She felt ready for discharge. She was discharged to home on 02/10/22 on a PO course of doxycycline in stable condition. She is to follow up with Dr. Forman in the office and Dr. Bobo at the wound care center. Blood cultures were negative preliminary and wound cultures were pending. Status at Discharge Functional status at discharge: independent ambulation Overall status at discharge: patient is back to baseline Time Spent with Patient Time attestation: Total time spent providing and/or coordinating discharge services: Discharge coordination time: Less than 30 minutes Quality: Safe Use of Opioids Does Pt have an Active Cancer Diagnosis on the Problem List?: No Quality: Stroke Does the patient have a stroke diagnosis?: No Physical Exam Vital Signs: Vital Signs: Last Vital Signs Temp 97.8 F 02/10/22 08:00 Pulse 96 02/10/22 08:00 Resp 18 02/10/22 08:00 BP 104/59 L 02/10/22 08:00 Pulse Ox 96 02/10/22 08:00 BMI result Body Mass Index 36.9 Const: Orientation/consciousness: patient oriented x3 Resp: Effort & Inspection: normal respiratory effort GI: Other: open I and D site on the T of the incision; packing in place, some scanty drainage Inspection: No distended Palpation (GI): Soft to palpation, not firm and Tenderness to palpation present (GI) (mild) Neuro: General: patient oriented x3 DS: Data Data Completed and Pending Labs on day of discharge: Laboratory Results - last 24 hr 02/10/22 07:00 WBC 13.4 H RBC 3.03 L Hgb 8.8 L Hct 27.4 L MCV 90.4 MCH 29.0 MCHC 32.1 RDW 13.3 Plt Count 512 H MPV 8.4 L Immature Gran % (Auto) 0.7 H Neut % (Auto) 76.4 H Lymph % (Auto) 13.0 L [place] % (Auto) 8.0 Eos % (Auto) 1.6 Baso % (Auto) 0.3 Lymph # (Auto) 1.7 [place] # (Auto) 1.1 Eos # (Auto) 0.2 Baso # (Auto) 0.0 Abs Immat Gran (auto) 0.10 H Absolute Neuts (auto) 10.2 H Absolute Nucleated RBC 0.000 Nucleated RBC % (auto) 0.0 Preliminary micro results at discharge 02/08/22 22:44 Routine Culture - Preliminary Abdomen - Abdominal Culture in progress. 02/08/22 23:17 Blood Culture - Preliminary Blood - Venous No growth after 24 hours. 02/08/22 22:42 Blood Culture - Preliminary Blood - Venous No growth after 24 hours. Discharge Plan Discharge Patient Disposition: Home, Self-Care Discharge Diagnosis: wound infection, s/p abdominoplasty Referrals: Lashay Roach MD [Primary Care Provider] - 1 Week Pepe Forman MD [Physician] - 1 Week Fannie Bobo MD [Physician] - 1 Week Discharge Medications: New doxycycline hyclate 100 mg tablet 100 mg PO BID Qty: 12 0RF ibuprofen 600 mg tablet 600 mg PO Q6H PRN (Reason: pain) Qty: 20 0RF Continued acetaminophen [Tylenol] 325 mg Tablet 325 mg PO QID PRN (Reason: Pain) 0RF folic acid 400 mcg Tablet 0.4 mg PO DAILY 0RF ascorbic acid (vitamin C) [Vitamin C] 250 mg Tablet,Chewable 250 mg PO DAILY 0RF vitamin E 100 unit Capsule 100 unit PO DAILY 0RF ferrous [id number] conc Capsule 1 cap PO MOWE 0RF Discharge Orders: Discharge Order (Routine); Ordered 02/10/22 Ordered By: Pepe Forman Activity on Discharge: As tolerated Stand Alone Forms: Patient Portal Discharge page Activity Restrictions/Additional Instructions: dry dressings with gauze - change twice a day Care Plan Goals: control infection Health Concerns: wound infection Plan of Treatment: oral antibiotics wound care Assessment: much improved Discharge Date/Time: 02/10/22 11:55
== END 2022-02-10 11:55 | disposition home or self-care (01) | DRG 721 ==
LOC: HO.ED 02-09 00:45 → HO.EDOVER 02-09 01:19 → HO.IMC 02-09 18:44
PROVIDERS: Admitting Provider Surgery; Emergency Provider Emergency Medicine Emergency Medical Services; PCP Internal Medicine; Visit Provider Surgery
DX: T81.49XA Infection following a procedure, other surgical site, initial encounter (principal); F32.A Depression, unspecified; F41.9 Anxiety disorder, unspecified; Z20.822 Contact with and (suspected) exposure to COVID-19; Z79.899 Other long term (current) drug therapy
CPT/HCPCS: 36415; 71045; 74177; 80048; 83605; 84702; 85025; 87040; 87071; 87077; 87186; 87205; 87502; 87635; 93005; 96361; 96374; 96375; 99285; J0696; J1885; J2543; J3370; Q9967

== ENCOUNTER → 2022-02-18 09:27 | Outpatient (BNVA) | payer OTHER, SELFPAY | PROVIDERS: PCP Internal Medicine; Visit Provider Surgery | DX: T81.41XA Infection following a procedure, superficial incisional surgical site, initial encounter (principal) | CPT/HCPCS: 99212 ==

== ENCOUNTER 2022-05-26 14:56 | Outpatient (REF) | payer OTHER, SELFPAY ==
[2022-05-27 08:11] LABS: HBS Num1 431.74 mIU/mL (0-7.99); ~Hepatitis B Surface Antibody REACTIVE (Nonreactive)
[2022-05-27 08:53] LABS: Rubella IgG Antibody 5.31 Index
[2022-05-30 08:03] LABS: Tetanus Antitoxiod Antibody 2.34 IU/mL
== END 2022-05-26 14:57 | disposition home or self-care (01) ==
LOC: HO.HMGCLDS 14:56
PROVIDERS: PCP Internal Medicine; Visit Provider Internal Medicine
DX: Z01.84 Encounter for antibody response examination (principal)
CPT/HCPCS: 36415; 86706; 86735; 86762; 86765; 86774; 86787

== ENCOUNTER 2022-05-29 10:11 | Outpatient (REF) | payer OTHER, SELFPAY ==
[2022-06-02 21:06] LABS: TS Negative Control Passed; TS Panel A 0; TS Panel B 0; TS Positive Control Passed; TSpotTB Negative (Negative)
== END 2022-05-29 10:12 | disposition home or self-care (01) ==
LOC: HO.HMGCLDS 10:11
PROVIDERS: PCP Internal Medicine; Visit Provider Internal Medicine
DX: Z11.1 Encounter for screening for respiratory tuberculosis (principal)
CPT/HCPCS: 36415; 86481

== ENCOUNTER 2022-06-12 10:46 | Outpatient (REF) | payer OTHER, SELFPAY ==
[2022-06-12 14:04] LABS: Iron 92 mcg/dL (30-160); Percent Iron Saturation 27 % (15-50); Total Iron Binding Capacity 336 mcg/dL (228-428); Unsaturated Iron Binding 244 ug/dL
== END 2022-06-12 10:47 | disposition home or self-care (01) ==
LOC: HO.HMGCLDS 10:46
PROVIDERS: PCP Internal Medicine; Visit Provider Internal Medicine
DX: Z00.01 Encounter for general adult medical examination with abnormal findings (principal); D64.9 Anemia, unspecified
CPT/HCPCS: 36415; 83540

== ENCOUNTER 2023-04-13 14:40 | Outpatient (REF) | payer OTHER, SELFPAY ==
[2023-04-15 22:03] LABS: TS Negative Control Passed; TS Panel A 1; TS Panel B 1; TS Positive Control Passed; TSpotTB Negative (Negative)
== END 2023-04-13 14:41 | disposition home or self-care (01) ==
LOC: HO.LAB 14:40
PROVIDERS: PCP Internal Medicine; Visit Provider Internal Medicine
DX: Z02.0 Encounter for examination for admission to educational institution (principal)
CPT/HCPCS: 36415; 86481

== ENCOUNTER 2023-06-01 11:09 | Outpatient (AMB) | payer OTHER, SELFPAY ==
--- NOTE | 2023-06-01 11:42 | MHC.OFFWIV ---
Intake Vital Signs 06/01/23 11:44 Height 5 ft 1 in Weight 205 lb BMI 38.7 BP 120/78 Blood Pressure Location Lt brachial Position Sitting Pulse 83 Pulse Source Pulse Oximeter Temp 97.9 F Temp Source Temporal Artery Scan Pulse Oximetry (%) 98 Intake Visit Reasons: EP, Left thumb contusion Intake Note: pt is here for c/o black and blue swollen thumb. patient bumped thumb against something and suspects it may need to be drained Patient Tobacco Use Status: Never used Tobacco Allergies No Known Allergies [No Known Allergies*] Allergy (Verified 06/02/23 18:38) Medication List - Last Reconciled 06/02/23 by Harsh Cochran MD meloxicam 15 mg PO DAILY Do you need a note to return to daycare/school/sports/work: Yes HPI EP, Left thumb contusion HPI Details 27-year-old female bank her left hand against a wall. Contusion on the thumb. She would like it evaluated. Predominant symptoms are pain. PFSH Medical History Anxiety Depression Surgical History Hx of section Family History Other Mental health disorder Social History Household Members: Family Housing: Apartment Do you presently have visiting nurse or other home services: No Alcohol intake: never Patient Tobacco Use Status: Never used Tobacco e-Cigarette/Vaping Use: Never Used service: No Current occupational status: employed Gender identity: Female Cognitive needs: No Hearing needs: No Vision needs: Yes Female Reproductive History Menstrual Age of Menarche: 8 Physical Exam Vital Signs: Last Vital Signs Temp 97.9 F 06/01/23 11:44 Pulse 83 06/01/23 11:44 BP 120/78 06/01/23 11:44 Pulse Ox 98 06/01/23 11:44 BMI result Body Mass Index 38.7 Extrem Other: Left on: Subungual hematoma. Tenderness along the edges of the nail. Assessment & Plan Assessment & Plan (1) Subungual hematoma of digit of hand: Code(s): S60.10XA - Contusion of unspecified finger with damage to nail, initial encounter Plan: Reassurance. It does not need to be drained. Meloxicam prescribed. Medications: New meloxicam 15 mg PO DAILY 14 tabs 0RF Coding Level of Care Code Est Pt Level 3 (00985) Diagnoses Subungual hematoma of digit of hand S60.10XA
[2023-06-01 11:44] VITALS: BP 120/78; PULSE 83; TEMP 36.6; O2SAT 98; BMI 38.7
== END 2023-06-01 12:48 | disposition home or self-care (01) ==
PROVIDERS: PCP Internal Medicine; Visit Provider Internal Medicine
DX: S60.10XA Contusion of unspecified finger with damage to nail, initial encounter (principal)
CPT/HCPCS: 99213

== ENCOUNTER 2023-11-17 15:05 | Outpatient (REF) | payer OTHER, SELFPAY | END 2023-11-17 15:06 | disposition home or self-care (01) | LOC: HO.HMGCLNP 15:05 | PROVIDERS: Visit Provider Internal Medicine | DX: Z13.89 Encounter for screening for other disorder (principal) ==

== ENCOUNTER 2023-11-17 15:05 | Outpatient (AMB) | payer OTHER, SELFPAY ==
[2023-11-17 15:07] VITALS: BP 118/80; PULSE 94; O2SAT 98; BMI 38.5
--- NOTE | 2023-11-17 15:07 | A.OFFPC_ITS ---
Vital Signs 11/17/23 15:07 Height 5 ft 1 in Weight 204 lb BMI 38.5 BP 118/80 Blood Pressure Location Lt brachial Position Sitting Pulse 94 Pulse Source Pulse Oximeter Pulse Oximetry (%) 98 Oxygen Delivery Method Room Air Intake Visit Reasons: Kidney stones follow up Allergies No Known Allergies [No Known Allergies*] Allergy (Verified 11/17/23 15:08) Medication List - Last Reconciled 11/17/23 by Lashay Roach MD No Known Home Meds Tobacco use date assessed: 11/17/23 Dental Screening Dental Screen Date: 11/17/23 Did you have a dental visit in the last 12 months?: Yes Did you have a dental problem in the last 6 months where you did not have access to dental care?: No Was dental information given to patient?: Patient has dentist HPI Kidney stones follow up HPI Details Patient is 28-year-old female who was last seen in 2021 came in today to get referral to Urology Patient have a history of left-sided renal calculi which flares every now and she had a pain left mid back so she went to [facility] ER Patient says that she had a CT scan and was told she has 3 stones left side. Currently patient does not have a severe pain, she is taking ibuprofen which is helping whenever she gets the pain She is also pushing fluids I am starting her on Flomax and referral to Urology placed Last time she had labs done she was anemic and leukocytosis I have placed order for labs however patient says that it was done in [facility] I do not have the report it will get that and will go from there. BMI is elevated need to lose weight. [facility] Medical History Depression Anxiety Surgical History Hx of section Family History Other Mental health disorder Social History Household Members: Family Housing: Apartment Do you presently have visiting nurse or other home services: No Alcohol intake: never Patient Tobacco Use Status: Never used Tobacco e-Cigarette/Vaping Use: Never Used service: No Current occupational status: employed Gender identity: Female Cognitive needs: No Hearing needs: No Vision needs: Yes Female Reproductive History Menstrual Age of Menarche: 8 Questionnaire Thrive Questionnaire Date Thrive assessed: 06/12/22 AUDIT C Alcohol Use Questionnaire (AUDIT-C) 1. How often do you have a drink containing alcohol?: Monthly or less 2. How many drinks containing alcohol do you have on a typical day when you are drinking?: 1 or 2 3. How often do you have six or more drinks on one occasion?: Never Total Score: 1 POONAM-7 AMB Questionnaire POONAM-7 Date POONAM - 7 assessed: 06/12/22 Source: Developed by Drs. Benjy Penaloza, Josephine Goodson, Darek Vergara and colleagues, with an educational zayda from [employer]. Review of Systems Const Denies chills and Denies fever(s) ENT Denies epistaxis and Denies nasal discharge Card Denies chest pain Resp Denies chest congestion, Denies cough and Denies hemoptysis GI Denies diarrhea and Denies nausea Skin/Breast Denies rash Neuro Reports no additional complaints Psych Reports no additional complaints Endo Reports no additional complaints Physical exam (Primary Care) Vital Signs: Last Vital Signs Pulse 94 11/17/23 15:07 BP 118/80 11/17/23 15:07 Pulse Ox 98 11/17/23 15:07 Oxygen Delivery Method Room Air 11/17/23 15:07 BMI result Body Mass Index 38.5 Tobacco/Smoking Status: Tobacco use Status Tobacco use date assessed 11/17/23 11/17/23 15:09 Patient Tobacco Use Status Never used Tobacco 11/17/23 15:09 e-Cigarette/Vaping Use Never Used 11/17/23 15:09 Thrive Assessment: Date of Thrive Assessment Date Thrive assessed 06/12/22 11/17/23 15:09 Const General: cooperative, comfortable and no acute distress Orientation/consciousness: patient oriented x3 HENMT Head: Yes normocephalic Eyes General: appearance normal, both eyes and all related structures Neck Neck: Yes supple Resp Effort & Inspection: normal respiratory effort, no cough and no stridor Cardio Rhythm: regular rhythm Heart sounds: S1 normal heart sound present and S2 normal heart sound present Skin General skin exam: turgor normal Neuro General: patient oriented x3, tone normal and moves all extremities Extrem Right lower extremity: no edema Left lower extremity: no edema Assessment and Plan Assessment & Plan (1) Calculus of left kidney: Code(s): N20.0 - Calculus of kidney (2) Anemia: Code(s): D64.9 - Anemia, unspecified Qualifiers: Anemia type: iron deficiency Iron deficiency anemia type: chronic blood loss Qualified Code(s): D50.0 - Iron deficiency anemia secondary to blood loss (chronic) (3) Leukocytosis: Code(s): D72.829 - Elevated white blood cell count, unspecified Qualifiers: Leukocytosis type: unspecified Qualified Code(s): D72.829 - Elevated white blood cell count, unspecified (4) Obesity due to excess calories: Code(s): E66.09 - Other obesity due to excess calories Qualifiers: Obesity classification: adult class 2 (BMI 35 - 39.9) Serious obesity comorbidity presence: without serious comorbidity Body mass index: BMI 38.0- 38.9 Qualified Code(s): E66.09 - Other obesity due to excess calories; Z68.38 - Body mass index [BMI] 38.0-38.9, adult Plan Patient is 28-year-old female who was last seen in 2021 came in today to get referral to Urology Patient have a history of left-sided renal calculi which flares every now and she had a pain left mid back so she went to [facility] ER Patient says that she had a CT scan and was told she has 3 stones left side. Currently patient does not have a severe pain, she is taking ibuprofen which is helping whenever she gets the pain She is also pushing fluids I am starting her on Flomax and referral to Urology placed Last time she had labs done she was anemic and leukocytosis I have placed order for labs however patient says that it was done in [facility] I do not have the report it will get that and will go from there. BMI is elevated need to lose weight. Orders: Orders Complete Blood Count Auto Diff Today D64.9 - Anemia, unspecified, D72.829 - Elevated white blood cell count, unspecified, E66.09 - Other obesity due to excess calories, N20.0 - Calculus of kidney Comprehensive Met. Panel Today D64.9 - Anemia, unspecified, D72.829 - Elevated white blood cell count, unspecified, E66.09 - Other obesity due to excess calories, N20.0 - Calculus of kidney Ferritin Today D64.9 - Anemia, unspecified, D72.829 - Elevated white blood cell count, unspecified, E66.09 - Other obesity due to excess calories, N20.0 - Calculus of kidney Referrals Urology Referral N20.0 - Calculus of kidney Medications: New tamsulosin (Flomax) 0.4 mg PO DAILY 30 caps 0RF Coding Level of Care Code Est Pt Level 4 (49764) Diagnoses Calculus of left kidney N20.0 Iron deficiency anemia due to chronic blood loss D50.0 Anemia type: iron deficiency Iron deficiency anemia type: chronic blood loss Leukocytosis, unspecified type D72.829 Leukocytosis type: unspecified Class 2 obesity due to excess calories without serious comorbidity with body mass index (BMI) of 38.0 to 38.9 in adult E66.09; Z68.38 Obesity classification: adult class 2 (BMI 35 - 39.9) Serious obesity comorbidity presence: without serious comorbidity Body mass index: BMI 38.0-38.9
== END 2023-11-17 16:18 | disposition home or self-care (01) ==
PROVIDERS: PCP Internal Medicine; Visit Provider Internal Medicine
DX: N20.0 Calculus of kidney (principal); D50.0 Iron deficiency anemia secondary to blood loss (chronic); E66.09 Other obesity due to excess calories; Z68.38 Body mass index [BMI] 38.0-38.9, adult
CPT/HCPCS: 81003; 99214

== ENCOUNTER 2024-04-28 11:31 | Outpatient (AMB) | payer OTHER, SELFPAY ==
--- NOTE | 2024-04-28 11:36 | A.OFFPC_ITS ---
Vital Signs 04/28/24 11:37 Height 5 ft 1 in Weight 202 lb BMI 38.2 BP 122/80 Blood Pressure Location Rt brachial Position Sitting Pulse 87 Pulse Source Pulse Oximeter Pulse Oximetry (%) 100 Oxygen Delivery Method Room Air Intake Visit Reasons: PE Allergies No Known Allergies [No Known Allergies*] Allergy (Verified 04/28/24 11:38) Medication List - Last Reconciled 04/28/24 by Lashay Roach MD tamsulosin (Flomax) 0.4 mg PO DAILY Tobacco use date assessed: 11/17/23 Dental Screening Dental Screen Date: 04/28/24 Did you have a dental visit in the last 12 months?: Yes Did you have a dental problem in the last 6 months where you did not have access to dental care?: No Was dental information given to patient?: Patient has dentist HPI PE HPI Details Physical exam appointment Patient have a history of anemia Complaining of feeling fatigued History of hemorrhoids once in awhile also see blood in stools Taking vnky-zcq-mmhwurl iron 2 times a week Due for labs BMI is elevated need to lose weight , we will be booking her appointment with the dietitian Established with [facility] History of renal calculi, doing well at this time established with [facility] Urology Physical exam 1 year Depending on lab reports we will book another appointment. [facility] Medical History Depression Anxiety Surgical History Hx of section Family History Other Mental health disorder Social History Household Members: Family Housing: Apartment Do you presently have visiting nurse or other home services: No Alcohol intake: never Patient Tobacco Use Status: Never used Tobacco e-Cigarette/Vaping Use: Never Used service: No Current occupational status: employed Gender identity: Female Cognitive needs: No Hearing needs: No Vision needs: Yes Female Reproductive History Menstrual Age of Menarche: 8 Questionnaire PHQ-9 Over the last 2 weeks, how often have you been bothered by any of the following problems? 1. Little interest or pleasure in doing things: not at all 2. Feeling down, depressed, or hopeless: not at all 3. Trouble falling or staying asleep, or sleeping too much: more than half the days 4. Feeling tired or having little energy: nearly every day 5. Poor appetite or overeating: not at all 6. Feeling bad about yourself - or that you are a failure or have let yourself or your family down: not at all 7. Trouble concentrating on things, such as reading the newspaper or watching television: not at all 8. Moving or speaking so slowly that other people could have noticed. Or the opposite - being so fidgety or restless that you have been moving around a lot more than usual: not at all 9. Thoughts that you would be better off or of hurting yourself in some way: not at all Total score: 5 Depression Screening Interpretation: Negative Depression Screening Done: Yes 81521 - PHQ-9 Billing: Yes Source: Developed by Drs. Benjy Penaloza, Josephine Goodson, Darek Vergara and colleagues, with an educational zayda from [employer]. Thrive Questionnaire Date Thrive assessed: 04/28/24 I am a: Patient What is your living situation today?: I have a steady place to live Within the past 12 months, did the food you bought not last and you didn't have the money to get more?: Never true Within the past 12 months, did you worry whether your food would run out before you got money to buy more?: Never true Do you have trouble paying for medicines?: No Do you have trouble getting transportation to medical appointments?: No Do you have trouble paying your heating and electricity bill?: No Do you have trouble taking care of your child, family member or friend?: No Do you have trouble with day-to-day activities such as bathing, preparing meals, shopping, managing finances, etc.?: No Are you currently unemployed and looking for a job?: No Are you interested in more education?: No Please select the resources that you would like help with: None Currently or been in a relationship where the following occur: No concerns reported THRIVE Score: 0 AUDIT C Alcohol Use Questionnaire (AUDIT-C) 1. How often do you have a drink containing alcohol?: Monthly or less 2. How many drinks containing alcohol do you have on a typical day when you are drinking?: 1 or 2 3. How often do you have six or more drinks on one occasion?: Never Total Score: 1 Score Reviewed/Action Taken: Yes POONAM-7 AMB Questionnaire POONAM-7 Date POONAM - 7 assessed: 06/12/22 Feeling nervous, anxious, or on edge: 0 = Not at all Not being able to stop or control worryin = Not at all Worrying too much about different things: 0 = Not at all Trouble relaxin = Not at all Being so restless that it is hard to sit still: 0 = Not at all Becoming easily annoyed or irritable: 0 = Not at all Feeling afraid as if something awful might happen: 0 = Not at all Total POONAM-7 score (0-4 normal; 5-9 mild; 10-14 moderate; 15-21 severe): 0 Source: Developed by Drs. Benjy Penaloza, Josephine Goodson, Darek Vergara and colleagues, with an educational zayda from [employer]. POONAM-7 Assessment Billing POONAM-7 Assessment Tool: POONAM-7 Assessment 68236 Review of Systems Const Denies chills and Denies fever(s) ENT Denies epistaxis and Denies nasal discharge Card Denies chest pain Resp Denies chest congestion, Denies cough and Denies hemoptysis GI Denies diarrhea and Denies nausea Skin/Breast Denies rash Neuro Reports no additional complaints Psych Reports no additional complaints Endo Reports no additional complaints Physical exam (Primary Care) Vital Signs: Last Vital Signs Pulse 87 04/28/24 11:37 BP 122/80 04/28/24 11:37 Pulse Ox 100 04/28/24 11:37 Oxygen Delivery Method Room Air 04/28/24 11:37 BMI result Body Mass Index 38.2 Tobacco/Smoking Status: Tobacco use Status Tobacco use date assessed 11/17/23 04/28/24 11:39 Patient Tobacco Use Status Never used Tobacco 04/28/24 11:39 e-Cigarette/Vaping Use Never Used 04/28/24 11:39 PHQ-9: PHQ-9 Score PHQ-9: Total score 5 04/28/24 12:11 Depression Screening Interpretation: Negative Thrive Assessment: Date of Thrive Assessment Date Thrive assessed 04/28/24 04/28/24 12:09 Currently or been in a relationship where the following occur: No concerns reported Const General: cooperative, comfortable and no acute distress Orientation/consciousness: patient oriented x3 HENMT Head: Yes normocephalic Eyes General: appearance normal, both eyes and all related structures Neck Neck: Yes supple Resp Effort & Inspection: normal respiratory effort, no cough and no stridor Cardio Rhythm: regular rhythm Heart sounds: S1 normal heart sound present and S2 normal heart sound present Skin General skin exam: turgor normal Neuro General: patient oriented x3, tone normal and moves all extremities Extrem Right lower extremity: no edema Left lower extremity: no edema Assessment and Plan Assessment & Plan (1) Encounter for general adult medical examination with abnormal findings: Code(s): Z00.01 - Encounter for general adult medical examination with abnormal findings (2) Obesity due to excess calories: Code(s): E66.09 - Other obesity due to excess calories Qualifiers: Body mass index: BMI 38.0-38.9 Obesity classification: adult class 2 (BMI 35 - 39.9) Serious obesity comorbidity presence: without serious comorbidity Qualified Code(s): E66.09 - Other obesity due to excess calories; Z68.38 - Body mass index [BMI] 38.0-38.9, adult (3) Fatigue: Code(s): R53.83 - Other fatigue Qualifiers: Fatigue type: unspecified Qualified Code(s): R53.83 - Other fatigue (4) Change in mole: Code(s): D22.9 - Melanocytic nevi, unspecified Plan Physical exam appointment Patient have a history of anemia Complaining of feeling fatigued History of hemorrhoids once in awhile also see blood in stools Taking ppxj-ndd-ioftume iron 2 times a week Due for labs BMI is elevated need to lose weight , we will be booking her appointment with the dietitian Patient also need to see a feed inspection supervisor for changing mole on her left arm Established with [facility] Up-to-date with visits History of renal calculi, doing well at this time established with [facility] Urology Physical exam 1 year Depending on lab reports we will book another appointment. Orders: Orders LDL Cholesterol Direct Today E66.09 - Other obesity due to excess calories, R53.83 - Other fatigue, Z00.01 - Encounter for general adult medical examination with abnormal findings, Z68.38 - Body mass index [BMI] 38.0-38.9, adult Vitamin B12 Today E66.09 - Other obesity due to excess calories, R53.83 - Other fatigue, Z00.01 - Encounter for general adult medical examination with abnormal findings, Z68.38 - Body mass index [BMI] 38.0-38.9, adult TSH reflex Free T4 Today E66.09 - Other obesity due to excess calories, R53.83 - Other fatigue, Z00.01 - Encounter for general adult medical examination with abnormal findings, Z68.38 - Body mass index [BMI] 38.0-38.9, adult Folate Today E66.09 - Other obesity due to excess calories, R53.83 - Other fatigue, Z00.01 - Encounter for general adult medical examination with abnormal findings, Z68.38 - Body mass index [BMI] 38.0-38.9, adult Complete Blood Count Auto Diff Today E66.09 - Other obesity due to excess min marjan, R53.83 - Other fatigue, Z00.01 - Encounter for general adult medical examination with abnormal findings, Z68.38 - Body mass index [BMI] 38.0-38.9, adult Comprehensive Met. Panel Today E66.09 - Other obesity due to excess calories, R53.83 - Other fatigue, Z00.01 - Encounter for general adult medical examination with abnormal findings, Z68.38 - Body mass index [BMI] 38.0-38.9, adult Vitamin D 25-OH (D2 and D3) Today E66.09 - Other obesity due to excess calories, R53.83 - Other fatigue, Z00.01 - Encounter for general adult medical examination with abnormal findings, Z68.38 - Body mass index [BMI] 38.0-38.9, adult Ferritin Today E66.09 - Other obesity due to excess calories, R53.83 - Other fatigue, Z00.01 - Encounter for general adult medical examination with abnormal findings, Z68.38 - Body mass index [BMI] 38.0-38.9, adult Referrals Dermatology Referral D22.9 - Melanocytic nevi, unspecified Coding Level of Care Code Est Pt Level 3 (24274) Est Pt Prev Care 18-39y(89243) Diagnoses Encounter for general adult medical examination with abnormal findings Z00.01 Class 2 obesity due to excess calories without serious comorbidity with body mass index (BMI) of 38.0 to 38.9 in adult E66.09; Z68.38 Body mass index: BMI 38.0-38.9 Obesity classification: adult class 2 (BMI 35 - 39.9) Serious obesity comorbidity presence: without serious comorbidity Fatigue, unspecified type R53.83 Fatigue type: unspecified Change in mole D22.9 Additional Codes POONAM-7 Assessment Billing - POONAM-7 Assessment Tool: POONAM-7 Assessment 98438 ([id number])
[2024-04-28 11:37] VITALS: BP 122/80; PULSE 87; O2SAT 100; BMI 38.2
== END 2024-04-28 11:52 | disposition home or self-care (01) ==
PROVIDERS: PCP Internal Medicine; Visit Provider Internal Medicine
DX: Z00.00 Encounter for general adult medical examination without abnormal findings (principal); E66.09 Other obesity due to excess calories; Z68.38 Body mass index [BMI] 38.0-38.9, adult; R53.83 Other fatigue; D22.9 Melanocytic nevi, unspecified
CPT/HCPCS: 99395

== ENCOUNTER 2024-04-28 11:53 | Outpatient (REF) | payer OTHER, SELFPAY ==
[2024-04-28 13:15] LABS: MANUAL DIFF FLAG NO
[2024-04-28 13:35] LABS: Basophils Percent Auto 0.3 % (0-2); Eosinophils Absolute Auto 0.1 X10*3/uL (0.0-0.4); Hemoglobin 13.3 g/dl (12.0-16.0); Imm Gran Abs Auto 0.04 X10*3/uL (0.00-0.03); Imm Gran Pct Auto 0.4 % (0.0-0.4); Lymphocytes Absolute Auto 2.7 X10*3/uL (1.2-4.9); Lymphocytes Percent Auto 29.4 % (20-40); Mean Corpuscular HGB Conc 34.1 g/dl (31.0-35.0); Mean Corpuscular Hemoglobin 29.9 pg (27.0-33.0); Mean Corpuscular Volume 87.6 fL (80.0-98.0); Mean Platelet Volume 10.1 fL (9.4-12.3); Monocytes Absolute Auto 0.7 X10*3/uL (0.1-1.2); Monocytes Percent Auto 7.2 % (2-11); Neutrophils Absolute Auto 5.6 x10*3/uL (2.0-8.3); Neutrophils Percent Auto 61.7 % (45-73); Platelet Count 375 X10*3/uL (160-400); Red Blood Count 4.45 X10*6/uL (4.20-5.50); Red Cell Distribution Width 12.7 % (11.0-16.0); White Blood Count 9.1 X10*3/uL (4.8-10.8)
[2024-04-28 13:44] LABS: Alanine Aminotransferase 13 U/L (0-31); Albumin Level 4.1 g/dL (3.5-5.0); Alkaline Phosphatase 76 U/L (39-117); Anion Gap 11 (12-20); Aspartate Amino Transferase 15 U/L (5-31); Bilirubin Total 0.5 mg/dL (0.0-1.0); Blood Urea Nitrogen 8 mg/dL (9-16); Calcium 9.8 mg/dL (8.4-10.2); Carbon Dioxide 26 mmol/L (22-29); Chloride 106 mmol/L (96-108); Estimated Glomerular Filt Rate > 60; Glucose Random 68 mg/dL (60-115); Potassium 3.8 mmol/L (3.3-5.1); Sodium 139 mmol/L (135-145); Total Protein 7.3 g/dL (6.5-8.0)
[2024-04-28 14:05] LABS: Ferritin 135 ng/mL (10-122); TSH reflex Free T4 0.54 uIU/mL (0.32-4.0)
[2024-04-28 14:27] LABS: Folate 11.1 ng/mL (> or = 4.0); Vitamin B12 590 pg/mL (200-900)
[2024-05-01 19:38] LABS: LDL Cholesterol Direct 109 mg/dL (<100)
[2024-05-03 13:33] LABS: Vitamin D 25-OH, D2 <4 ng/mL; Vitamin D 25-OH, D3 28 ng/mL; Vitamin D 25-OH, Total 28 ng/mL (30-100)
== END 2024-04-28 11:54 | disposition home or self-care (01) ==
LOC: HO.HMGCLDS 11:53
PROVIDERS: PCP Internal Medicine; Visit Provider Internal Medicine
DX: Z00.01 Encounter for general adult medical examination with abnormal findings (principal); D72.829 Elevated white blood cell count, unspecified; N20.0 Calculus of kidney; D64.9 Anemia, unspecified; E66.09 Other obesity due to excess calories; Z68.38 Body mass index [BMI] 38.0-38.9, adult; R53.83 Other fatigue
CPT/HCPCS: 36415; 80053; 82306; 82607; 82728; 82746; 83721; 84443; 85025

== ENCOUNTER 2024-07-03 11:12 | Outpatient (AMB) | payer OTHER, SELFPAY ==
--- NOTE | 2024-07-03 11:45 | MHC.OFFWIV ---
Intake Vital Signs 07/03/24 11:46 Height 5 ft 1 in Weight 205 lb BMI 38.7 BP 108/82 Blood Pressure Location Lt brachial Position Sitting Pulse 69 Pulse Source Pulse Oximeter Temp 98.7 F Temp Source Oral Pulse Oximetry (%) 98 Oxygen Delivery Method Room Air Intake Visit Reasons: EP Cough/chest pain, headaches Intake Note: pt c/o cough, chest pain and headaches. Started last Wednesday. Seen at [facility] , Dx URI, Covid swab negative. Patient Tobacco Use Status: Never used Tobacco Allergies No Known Allergies [No Known Allergies*] Allergy (Verified 07/03/24 11:46) Do you need a note to return to daycare/school/sports/work: Yes HPI HPI Comments History of Present Illness Details Patient is a 28-year-old female complaining of a productive cough, chest congestion and headaches for 6 days. She states that 4 days ago she went to [facility] urgent care where she was tested for COVID, her test result was negative. She was diagnosed with an upper respiratory infection but not given any medications. She states that her cough is keeping her up at night and that she gets these coughing fits that she can not manage. She dates she has been managing her headaches with Excedrin and the congestion with Robitussin. She states she has been eating and drinking normally and denies any fevers, sinus pain, ear pain. She denies a history of asthma [facility] Medical History Depression Anxiety Surgical History Hx of section Family History Other Mental health disorder Social History Household Members: Family Housing: Apartment Do you presently have visiting nurse or other home services: No Alcohol intake: never Patient Tobacco Use Status: Never used Tobacco e-Cigarette/Vaping Use: Never Used service: No Current occupational status: employed Gender identity: Female Cognitive needs: No Hearing needs: No Vision needs: Yes Female Reproductive History Menstrual Age of Menarche: 8 Review of Systems Const All systems reviewed & are unremarkable except as noted in HPI and below Physical Exam Vital Signs: Last Vital Signs Temp 98.7 F 07/03/24 11:46 Pulse 69 07/03/24 11:46 BP 108/82 07/03/24 11:46 Pulse Ox 98 07/03/24 11:46 Oxygen Delivery Method Room Air 07/03/24 11:46 BMI result Body Mass Index 38.7 Const General: cooperative, healthy appearing, comfortable and no acute distress Orientation/consciousness: patient oriented x3 Limitations: no limitations HEENT Head: Yes normal to inspection Ears: hearing grossly normal bilaterally, external ears normal and TM's normal bilaterally General nose exam: Normal external nose present, Normal nares present and No nasal discharge present Face and sinus: Yes normal facial exam and Yes sinuses nontender Mouth: Normal oral and palatal mucosa present and moist mucous membranes Throat: Yes tonsils normal, Yes uvula midline and Yes posterior oropharynx abnormal (Erythema) Eyes General: appearance normal, both eyes and all related structures Neck Neck: Yes normal visual inspection Resp Effort & Inspection: normal respiratory effort, able to speak in complete sentences, Actively coughing, no respiratory distress, not tachypneic, no tripod positioning and no use of accessory muscles Auscultation: clear to auscultation bilaterally Cardio Rate: regular rate Rhythm: regular rhythm Heart sounds: normal S1 and S2 Skin General skin exam: no rashes or lesions noted Neuro General: patient oriented x3 Extrem General: Yes normal to inspection and Yes no clubbing, cyanosis or edema Assessment & Plan Assessment & Plan (1) URI (upper respiratory infection): Code(s): J06.9 - Acute upper respiratory infection, unspecified Qualifiers: URI type: unspecified URI Qualified Code(s): J06.9 - Acute upper respiratory infection, unspecified Plan: Vital signs are stable, patient is well-appearing, lung sounds are clear. Sent inhaler and Tessalon Perles to pharmacy and recommended she continue to manage her symptoms with ikta-zze-umeowbn medications Plan See above Orders: Orders SARS-CoV2/FLU/RSV 07/03/24 J06.9 - Acute upper respiratory infection, unspecified Medications: New benzonatate 200 mg PO TID PRN 14 caps 0RF cough albuterol sulfate 90 mcg/actuation (Ventolin HFA) 2 puffs inhalation Q4-6H PRN 8.5 grams 0RF shortness of breath or wheezing Coding Level of Care Code Est Pt Level 3 (91997) Diagnoses Upper respiratory tract infection, unspecified type J06.9 URI type: unspecified URI
[2024-07-03 11:46] VITALS: BP 108/82; PULSE 69; TEMP 37.1; O2SAT 98; BMI 38.7
== END 2024-07-03 12:22 | disposition home or self-care (01) ==
PROVIDERS: PCP Internal Medicine; Visit Provider Physician Assistant
DX: J06.9 Acute upper respiratory infection, unspecified (principal)

== ENCOUNTER 2024-07-03 11:12 | Outpatient (REF) | payer OTHER, SELFPAY ==
[2024-07-03 16:56] LABS: Influenza A PCR NEGATIVE (Negative); Influenza B PCR NEGATIVE (Negative); Resp Syncy Virus RNA Qual PCR NEGATIVE (Negative); SARS COV2 PCR INHOUSE NEGATIVE (Negative)
== END 2024-07-03 11:13 | disposition home or self-care (01) ==
LOC: HO.LAB 11:12
PROVIDERS: Physician Assistant; PCP Internal Medicine; Visit Provider Internal Medicine
DX: J06.9 Acute upper respiratory infection, unspecified (principal)
CPT/HCPCS: 0241U; 99212

== ENCOUNTER 2024-12-26 08:17 | Outpatient (AMB) | payer OTHER, SELFPAY ==
--- NOTE | 2024-12-26 08:48 | AM.OFFWIN_ITS ---
Intake Vital Signs 12/26/24 08:50 Weight 206 lb BP 110/70 Blood Pressure Location Rt brachial Position Sitting Pulse 78 Pulse Source Pulse Oximeter Pulse Oximetry (%) 99 Oxygen Delivery Method Room Air Intake Visit Reasons: EP Rectal bleeding due to hemmorhoids Intake Note: Patient here for rectal bleeding due to hemorrhoids that have been present for a couple of weeks. Patient Tobacco Use Status: Never used Tobacco Allergies No Known Allergies [No Known Allergies*] Allergy (Verified 12/26/24 08:51) Medication List - Last Reconciled 12/26/24 by Lashay Roach MD albuterol sulfate 90 mcg/actuation (Ventolin HFA) 2 puffs inhalation Q4-6H PRN Do you need a note to return to daycare/school/sports/work: Yes HPI EP Rectal bleeding due to hemmorhoids HPI Details History - The patient is a 29-year-old female pr esenting with rectal bleeding and discomfort attributed to hemorrhoids. - She has experienced symptoms for appro ximately two weeks, with bleeding presenting spontaneously without straining. - Bleeding causes significant discomfort and occurs randomly. - Current management includes stool soft eners, topical applications (Preparation H, witch tiny), ibuprofen, and dietary fiber. Problem List - Hemorrhoids - Rectal bleeding associated with hemorr hoids Patient Instructions - Continue using topical treatments such as Preparation H and witch tiny. - Apply lidocaine as prescribed for pain relief. - Maintain a diet high in fiber to keep stools soft. - Engage in sitz baths to alleviate symp toms. - Do not be alarmed by bleeding; it is t ypically minor and due to nicks in blood vessels. - Contact the clinic if symptoms worsen or do not improve. Review of Systems - General: No fever no chills - Neurological: No headaches no dizziness - Ear nose throat: No sore throat no hearing difficulty no ear pain - Cardiovascular: No syncope, no chest pain, no palpitations - Gastrointestinal: No nausea vomiting - Endocrine: No polyuria polydipsia no heat intolerance - Genitourinary: No dysuria , no blood in urine Physical Exam General: No acute distress HEENT: No acute findings Neck: Supple Respiratory system: Able to talk in full sentences, no audible wheeze cardiovascular: S1-S2 regular in rate and rhythm Gastrointestinal/rectal exam: No active bleeding noted no thrombosis observed, external hemorrhoids noted Extremities: No new findings [employer]: Alert awake oriented x3 motor sensory intact Skin: Normal turgor PFSH Medical History Depression Anxiety Surgical History Hx of section Family History Other Mental health disorder Social History Household Members: Family Housing: Apartment Do you presently have visiting nurse or other home services: No Alcohol intake: never Patient Tobacco Use Status: Never used Tobacco e-Cigarette/Vaping Use: Never Used service: No Current occupational status: employed Gender identity: Female Cognitive needs: No Hearing needs: No Vision needs: Yes Female Reproductive History Menstrual Age of Menarche: 8 Physical Exam Vital Signs: Last Vital Signs Pulse 78 12/26/24 08:50 BP 110/70 12/26/24 08:50 Pulse Ox 99 12/26/24 08:50 Oxygen Delivery Method Room Air 12/26/24 08:50 Assessment & Plan Assessment & Plan (1) Bleeding external hemorrhoids: Code(s): K64.4 - Residual hemorrhoidal skin tags Plan History - The patient is a 29-year-old female presenting with rectal bleeding and discomfort attributed to hemorrhoids. - She has experienced symptoms for approximately two weeks, with bleeding presenting spontaneously without straining. - Bleeding causes significant discomfort and occurs randomly. - Current management includes stool softeners, topical applications (Preparation H, witch tiny), ibuprofen, and dietary fiber. Problem List - Hemorrhoids - Rectal bleeding associated with hemorrhoids Patient Instructions - Continue using topical treatments such as Preparation H and witch tiny. - Apply lidocaine as prescribed for pain relief. - Maintain a diet high in fiber to keep stools soft. - Engage in sitz baths to alleviate symptoms. - Do not be alarmed by bleeding; it is typically minor and due to nicks in blood vessels. - Contact the clinic if symptoms worsen or do not improve. Medications: New hydrocortisone 2.5% 1 appl IA BID-QID PRN 30 grams 1RF hemorrhoids lidocaine 5% 1 appl topical BID-TID 10 days PRN 30 grams 1RF pain Coding Level of Care Code Est Pt Level 3 (38592) Diagnoses Bleeding external hemorrhoids K64.4
[2024-12-26 08:50] VITALS: BP 110/70; PULSE 78; O2SAT 99
== END 2024-12-26 09:02 | disposition home or self-care (01) ==
PROVIDERS: PCP Internal Medicine; Visit Provider Internal Medicine
DX: K64.4 Residual hemorrhoidal skin tags (principal)

== ENCOUNTER → 2024-12-26 08:17 | Outpatient (BNVA) | payer OTHER, SELFPAY | PROVIDERS: PCP Internal Medicine; Visit Provider Internal Medicine | DX: K64.4 Residual hemorrhoidal skin tags (principal) | CPT/HCPCS: 99212 ==

== ENCOUNTER 2025-08-31 11:02 | Outpatient (AMB) | payer OTHER, SELFPAY ==
--- NOTE | 2025-08-31 11:06 | A.OFFPC_ITS ---
Vital Signs 08/31/25 11:07 Height 5 ft 1 in Weight 203 lb BMI 38.4 BP 112/72 Blood Pressure Location Lt brachial Position Sitting Pulse 80 Pulse Source Pulse Oximeter Pulse Oximetry (%) 98 Intake Visit Reasons: ovarian vein thrombosis-still having pain Allergies No Known Allergies (No Known Allergies*) Allergy (Verified 08/31/25 11:07) Medication List - Last Reconciled 09/01/25 by Lashay Roach MD No Known Home Meds Tobacco use date assessed: 08/31/25 Dental Screening Dental Screen Date: 08/31/25 Did you have a dental visit in the last 12 months?: Yes Did you have a dental problem in the last 6 months where you did not have access to dental care?: No Was dental information given to patient?: Patient has dentist HPI ovarian vein thrombosis-still having pain HPI Details Patient was in [facility] Emergency room 08/03/2025 with a chief complaint of left flank pain Associated with nausea and vomiting Patient does have a history of left-sided kidney stone as well Her vital signs were stable she was afebrile On examination she was tender over left flank area Labs were done and CT scan of abdomen was ordered along with pelvis Which showed fat stranding surrounded the left ovarian vein raising suspicion of ovarian vein thrombophlebitis Punctate calculus within the interpolar of the left kidney no hydronephrosis Lab test showed leukocytosis of 16 K UA showed hematuria but no UTI She was given a dose of Zosyn Case was discussed with Dr. Bobbi HEARD Who said that it is typically seen and anticoagulation was recommended along with antibiotics She was started on heparin and was admitted wearing hospital hematology cons ultation was also requested She underwent another CT scan of abdomen and pelvis with IV contrast that does not show any signs of thrombus only thrombophlebitis Her anticoagulants were discontinued and she was discharged on Augmentin for 5 days blood culture remain negative Coagulation workup was still pending at the time of discharge on 04 of August We do not have those reports we will request them She came in today for a follow-up appointment as she continued to have pain - The patient experienced dull pain in t he left flank yesterday. - Her menstrual cycle started today, and the pain has since improved to a mild ache, suggesting the pain was related to menstrual cramping. - Following discharge and completion of antibiotics for her previous ovarian vessel inflammation, she had been pain-free until yesterday. Social History: - The patient denies any recent pregnanc ies. Diagnostic Results: - A prior urine culture was negative. - A clotting workup was performed, we nallely slaughter got the reports, work up is negative Problem List - Left flank pain - Ovarian vessel inflammation - Nephrolithiasis Plan - Continue to observe symptoms, as the r ecent pain is likely attributable to menstrual cramping. - clotting workup negative - The patient is advised to schedule an appointment with her FILTRATION SUPERVISOR for follow- up and routine annual care. - If the flank pain recurs, the patient is instructed to see her FILTRATION SUPERVISOR for evaluation. Review of Systems - General: No fever no chills - Neurological: No headaches no dizziness - Ear nose throat: No sore throat no hearing difficulty no ear pain - Cardiovascular: No syncope, no chest pain, no palpitations - Gastrointestinal: No nausea vomiting or diarrhea - Endocrine: No polyuria polydipsia no heat intolerance - Genitourinary: No dysuria , no blood in urine Physical Exam General: No acute distress HEENT: No acute findings Neck: Supple Respiratory system: Able to talk in full sentences, no audible wheeze Cardiovascular: S1-S2 regular in rate and rhythm Gastrointestinal: no pain with palpation, BS +, no flank pain Extremities: No new findings FACILITIES FLIGHT CHECK PILOT: Alert awake oriented x3 motor intact Skin: Normal turgor PFSH Medical History Depression Anxiety Surgical History Hx of section Family History Other Mental health disorder Social History Household Members: Family Housing: Apartment Do you presently have visiting nurse or other home services: No Alcohol intake: never Patient Tobacco Use Status: Never used Tobacco e-Cigarette/Vaping Use: Never Used service: No Current occupational status: employed Gender identity: Female Cognitive needs: No Hearing needs: No Vision needs: Yes Female Reproductive History Menstrual Age of Menarche: 8 Questionnaire PHQ-9 Over the last 2 weeks, how often have you been bothered by any of the following problems? 1. Little interest or pleasure in doing things: not at all 2. Feeling down, depressed, or hopeless: not at all 3. Trouble falling or staying asleep, or sleeping too much: more than half the days 4. Feeling tired or having little energy: nearly every day 5. Poor appetite or overeating: not at all 6. Feeling bad about yourself - or that you are a failure or have let yourself o r your family down: not at all 7. Trouble concentrating on things, such as reading the newspaper or watching television: not at all 8. Moving or speaking so slowly that other people could have noticed. Or the opposite - being so fidgety or restless that you have been moving around a lot more than usual: not at all 9. Thoughts that you would be better off or of hurting yourself in some way: not at all Total score: 5 Depression Screening Interpretation: Negative Depression Screening Done: Yes 72685 - PHQ-9 Billing: Yes Source: Developed by Drs. Benjy Penaloza, Josephine Goodson, Darek mendez nd colleagues, with an educational zayda from [employer]. Thrive Questionnaire Date Thrive assessed: 08/31/25 I am a: Patient What is your living situation today?: I have a steady place to live Within the past 12 months, did the food you bought not last and you didn't have the money to get more?: Never true Within the past 12 months, did you worry whether your food would run out before you got money to buy more?: Never true Do you have trouble paying for medicines?: No Do you have trouble getting transportation to medical appointments?: No Do you have trouble paying your heating and electricity bill?: No Do you have trouble taking care of your child, family member or friend?: No Do you have trouble with day-to-day activities such as bathing, preparing meals, shopping, managing finances, etc.?: No Are you currently unemployed and looking for a job?: No Are you interested in more education?: No Please select the resources that you would like help with: None Currently or been in a relationship where the following occur: No concerns reported THRIVE Score: 0 AUDIT C Alcohol Use Questionnaire (AUDIT-C) 1. How often do you have a drink containing alcohol?: Monthly or less 2. How many drinks containing alcohol do you have on a typical day when you are drinking?: 1 or 2 3. How often do you have six or more drinks on one occasion?: Never Total Score: 1 Score Reviewed/Action Taken: Yes POONAM-7 AMB Questionnaire POONAM-7 Date POONAM - 7 assessed: 08/31/25 Feeling nervous, anxious, or on edge: 0 = Not at all Not being able to stop or control worryin = Not at all Worrying too much about different things: 0 = Not at all Trouble relaxin = Not at all Being so restless that it is hard to sit still: 0 = Not at all Becoming easily annoyed or irritable: 0 = Not at all Feeling afraid as if something awful might happen: 0 = Not at all Total POONAM-7 score (0-4 normal; 5-9 mild; 10-14 moderate; 15-21 severe): 0 Source: Developed by Drs. Benjy Penaloza, Josephine Goodson, Darek Vergara and colleagues, with an educational zayda from [employer]. POONAM-7 Assessment Billing POONAM-7 Assessment Tool: POONAM-7 Assessment 49390 Physical exam (Primary Care) Vital Signs: Last Vital Signs Pulse 80 08/31/25 11:07 BP 112/72 08/31/25 11:07 Pulse Ox 98 08/31/25 11:07 BMI result Body Mass Index 38.4 Tobacco/Smoking Status: Tobacco use Status Tobacco use date assessed 08/31/25 08/31/25 11:11 Patient Tobacco Use Status Never used Tobacco 08/31/25 11:11 e-Cigarette/Vaping Use Never Used 08/31/25 11:11 PHQ-9: PHQ-9 Score PHQ-9: Total score 5 08/31/25 11:13 Depression Screening Interpretation: Negative Thrive Assessment: Date of Thrive Assessment Date Thrive assessed 08/31/25 08/31/25 11:11 Currently or been in a relationship where the following occur: No concerns reported Coding Level of Care Code Est Pt Level 5 (82810) Diagnoses Hospital discharge follow-up Z09 Left flank pain R10.9 Thrombophlebitis I80.9 Additional Codes POONAM-7 Assessment Billing - POONAM-7 Assessment Tool: POONAM-7 Assessment 97163 ([id number]) PHQ-9 - 97643 - PHQ-9 Billing: Yes ([id number]) Time Spent (min) 40 Comment hospital notes review, call to retrieve labs / face to face / document Assessment & Plan Assessment & Plan (1) Hospital discharge follow-up: Code(s): Z09 - Encounter for follow-up examination after completed treatment for conditions other than malignant neoplasm Category: Medical (2) Left flank pain: Code(s): R10.9 - Unspecified abdominal pain Category: Medical (3) Thrombophlebitis: Code(s): I80.9 - Phlebitis and thrombophlebitis of unspecified site Category: Medical Plan Patient was in [facility] Emergency room 08/03/2025 with a chief complaint of left flank pain Associated with nausea and vomiting Patient does have a history of left-sided kidney stone as well Her vital signs were stable she was afebrile On examination she was tender over left flank area Labs were done and CT scan of abdomen was ordered along with pelvis Which showed fat stranding surrounded the left ovarian vein raising suspicion of ovarian vein thrombophlebitis Punctate calculus within the interpolar of the left kidney no hydronephrosis Lab test showed leukocytosis of 16 K UA showed hematuria but no UTI She was given a dose of Zosyn Case was discussed with Dr. Bobbi HEARD Who said that it is typically seen and anticoagulation was recommended along with antibiotics She was started on heparin and was admitted wearing hospital hematology consultation was also requested She underwent another CT scan of abdomen and pelvis with IV contrast that does not show any signs of thrombus only thrombophlebitis Her anticoagulants were discontinued and she was discharged on Augmentin for 5 days blood culture remain negative Coagulation workup was still pending at the time of discharge on 04 of August We do not have those reports we will request them She came in today for a follow-up appointment as she continued to have pain - The patient experienced dull pain in the left flank yesterday. - Her menstrual cycle started today, and the pain has since improved to a mild ache, suggesting the pain was related to menstrual cramping. - Following discharge and completion of antibiotics for her previous ovarian vessel inflammation, she had been pain-free until yesterday. Social History: - The patient denies any recent pregnancies. Diagnostic Results: - A prior urine culture was negative. - A clotting workup was performed, we finally got the reports, work up is negative Problem List - Left flank pain - Ovarian vessel inflammation - Nephrolithiasis Plan - Continue to observe symptoms, as the recent pain is likely attributable to menstrual cramping. - clotting workup negative - The patient is advised to schedule an appointment with her FILTRATION SUPERVISOR for follow- up and routine annual care. - If the flank pain recurs, the patient is instructed to see her FILTRATION SUPERVISOR for evaluation.
[2025-08-31 11:07] VITALS: BP 112/72; PULSE 80; O2SAT 98; BMI 38.4
== END 2025-08-31 11:19 | disposition home or self-care (01) ==
LOC: HO.HMCC 11:02
PROVIDERS: PCP Internal Medicine; Visit Provider Internal Medicine
DX: Z09 Encounter for follow-up examination after completed treatment for conditions other than malignant neoplasm (principal); R10.9 Unspecified abdominal pain; I80.9 Phlebitis and thrombophlebitis of unspecified site

== ENCOUNTER → 2025-08-31 11:02 | Outpatient (BNVA) | payer OTHER, SELFPAY | PROVIDERS: PCP Internal Medicine; Visit Provider Internal Medicine | DX: Z09 Encounter for follow-up examination after completed treatment for conditions other than malignant neoplasm (principal); I80.9 Phlebitis and thrombophlebitis of unspecified site; R10.9 Unspecified abdominal pain | CPT/HCPCS: 96127; 99212 ==

== ENCOUNTER 2025-10-17 11:31 | Outpatient (AMB) | payer OTHER, SELFPAY ==
[2025-10-17 11:33] VITALS: BP 118/72; PULSE 99; RESP 18; O2SAT 97; BMI 38.2
--- NOTE | 2025-10-17 11:33 | A.OFFPC_ITS ---
Vital Signs 10/17/25 11:33 Height 5 ft 1 in Weight 202 lb 2 oz BMI 38.2 BP 118/72 Blood Pressure Location Rt brachial Position Sitting Respiration 18 Pulse 99 Pulse Source Pulse Oximeter Pulse Oximetry (%) 97 Oxygen Delivery Method Room Air Intake Visit Reasons: PE Is last menstrual period known: Yes Last menstrual period: 10/15/25 Patient : No Allergies No Known Allergies (No Known Allergies*) Allergy (Verified 10/17/25 11:33) Medication List - Last Reconciled 10/17/25 by Lashay Roach MD No Known Home Meds Tobacco use date assessed: 10/17/25 Dental Screening Dental Screen Date: 10/17/25 Did you have a dental visit in the last 12 months?: No Did you have a dental problem in the last 6 months where you did not have access to dental care?: No Was dental information given to patient?: Patient has dentist HPI HPI Comments History of Present Illness Details History of Present Illness The patient is a 30 year old female presenting for a physical examination, a hospital discharge follow-up, and to obtain a physical form and a TB test for school. Hospital Discharge Follow-up: - The patient is following up after a ho spital discharge in August. For left flank and pelvic pain - She reports feeling better since then. - She notes that her symptoms were worse during her menstrual cycle, but her last cycle was not as bad. Nephrolithiasis: - The patient has a history of left-side d kidney stones. - She currently denies any associated pa in. Obesity and Fatigue: - The patient is attempting to lose weig ht to alleviate fatigue. - Her BMI is 38.2, which is elevated. - She reports that her weight fluctuates . Facial Rash: - The patient has a facial rash that has been present for a while. - It flares up, worsens with sun exposur e, becomes warm to the touch, and appears very red. - The rash reportedly does not get nancy r and maintains a flushed appearance. Health Maintenance: - The patient needs to schedule an OBGYN visit, which was previously deferred due to an insurance issue. - Her last laboratory tests were conduct ed in the summer of the previous year. - The patient requires a TB blood test f or school. - Her tetanus vaccination is current, wi th the last one received in 2019. Medical History: - Left-sided nephrolithiasis, currently asymptomatic. - Recent hospitalization in August for pelvic pain - Obesity, with a BMI of 38.2. - Chronic facial rash with flares. Family History: - The patient's grandmother had colon ca ncer. - Denies a family history of breast canc er. - Denies a family history of lupus. Health Maintenance - Last laboratory tests were in summer o last year; due for repeat labs including cholesterol. - Requires a TB test for school. - Tetanus vaccination is up to date, las t administered in 2019. - A clinical breast exam was performed. - Needs to schedule an OBGYN visit. - Counseled on weight loss for elevated BMI (38.2) with a goal of losing 50 pounds. - Referral to dermatology will be placed for evaluation of facial rash. - Lupus screening will be included in lab orders. [facility] Medical History Depression Anxiety Surgical History Hx of section Family History Other Mental health disorder Social History Household Members: Family Housing: Apartment Do you presently have visiting nurse or other home services: No Alcohol intake: never Patient Tobacco Use Status: Never used Tobacco e-Cigarette/Vaping Use: Never Used Patient : No service: No Current occupational status: employed Gender identity: Female Cognitive needs: No Hearing needs: No Vision needs: Yes Female Reproductive History Menstrual Age of Menarche: 8 Date of last menstrual period: 10/15/25 Questionnaire PHQ-9 Over the last 2 weeks, how often have you been bothered by any of the following problems? 1. Little interest or pleasure in doing things: not at all 2. Feeling down, depressed, or hopeless: not at all 3. Trouble falling or staying asleep, or sleeping too much: several days 4. Feeling tired or having little energy: several days 5. Poor appetite or overeating: not at all 6. Feeling bad about yourself - or that you are a failure or have let yourself or your family down: not at all 7. Trouble concentrating on things, such as reading the newspaper or watching television: not at all 8. Moving or speaking so slowly that other people could have noticed. Or the opposite - being so fidgety or restless that you have been moving around a lot more than usual: not at all 9. Thoughts that you would be better off or of hurting yourself in some way: not at all Total score: 2 Depression Screening Interpretation: Negative Depression Screening Done: Yes 81358 - PHQ-9 Billing: Yes Source: Developed by Drs. Benjy Penaloza, Josephine Goodson, Darek Vergara and colleagues, with an educational zayda from [employer]. Thrive Questionnaire Date Thrive assessed: 10/17/25 I am a: Patient What is your living situation today?: I have a steady place to live Within the past 12 months, did the food you bought not last and you didn't have the money to get more?: Never true Within the past 12 months, did you worry whether your food would run out before you got money to buy more?: Never true Do you have trouble paying for medicines?: No Do you have trouble getting transportation to medical appointments?: No Do you have trouble paying your heating and electricity bill?: No Do you have trouble taking care of your child, family member or friend?: No Do you have trouble with day-to-day activities such as bathing, preparing meals, shopping, managing finances, etc.?: No Are you currently unemployed and looking for a job?: No Are you interested in more education?: Yes Please select the resources that you would like help with: None Currently or been in a relationship where the following occur: No concerns reported THRIVE Score: 0 AUDIT C Alcohol Use Questionnaire (AUDIT-C) 1. How often do you have a drink containing alcohol?: Never 3. How often do you have six or more drinks on one occasion?: Never Total Score: 0 Score Reviewed/Action Taken: Yes POONAM-7 AMB Questionnaire POONAM-7 Date POONAM - 7 assessed: 10/17/25 Feeling nervous, anxious, or on edge: 0 = Not at all Not being able to stop or control worryin = Not at all Worrying too much about different things: 0 = Not at all Trouble relaxin = Not at all Being so restless that it is hard to sit still: 0 = Not at all Becoming easily annoyed or irritable: 0 = Not at all Feeling afraid as if something awful might happen: 0 = Not at all Total POONAM-7 score (0-4 normal; 5-9 mild; 10-14 moderate; 15-21 severe): 0 Source: Developed by Drs. Benjy Penaloza, Josephine Goodson, Darek Vergara and colleagues, with an educational zayda from [employer]. POONAM-7 Assessment Billing POONAM-7 Assessment Tool: POONAM-7 Assessment 32851 Review of Systems Narrative Review of Systems - General: No fever no chills - Neurological: No headaches no dizziness - Ear nose throat: No sore throat no hearing difficulty no ear pain - Cardiovascular: No syncope, no chest pain, no palpitations - Gastrointestinal: No nausea vomiting or diarrhea - Endocrine: No polyuria polydipsia no heat intolerance - Genitourinary: No dysuria Physical exam (Primary Care) Vital Signs: Last Vital Signs Pulse 99 10/17/25 11:33 Resp 18 10/17/25 11:33 BP 118/72 10/17/25 11:33 Pulse Ox 97 10/17/25 11:33 Oxygen Delivery Method Room Air 10/17/25 11:33 BMI result Body Mass Index 38.2 Tobacco/Smoking Status: Tobacco use Status Tobacco use date assessed 10/17/25 10/17/25 11:38 Patient Tobacco Use Status Never used Tobacco 10/17/25 11:38 e-Cigarette/Vaping Use Never Used 10/17/25 11:38 PHQ-9: PHQ-9 Score PHQ-9: Total score 2 10/17/25 11:52 Depression Screening Interpretation: Negative Thrive Assessment: Date of Thrive Assessment Date Thrive assessed 10/17/25 10/17/25 11:38 Currently or been in a relationship where the following occur: No concerns reported Narrative Physical Exam General: Cooperative, healthy appearing, comfortable, no acute distress Orientation: Patient oriented x3 Head: Normal to inspection Ears: Within normal limit visually, no difficulty hearing Nose: Normal external nose present Face and sinus: Normal facial exam Eyes: Appearance normal, extraocular movement intact pupils reactive Neck: Normal visual inspection and supple Respiratory: Normal respiratory effort and able to speak in complete sentences. Clear to auscultation, no stridor Cardiovascular: S1 and S2 RRR Breast exam benign GI: Normal to inspection. Soft to palpation and nontender Skin: Turgor normal, no acute findings, presence of a rash that flares up in the sun, over both cheeks Neuro: Patient oriented x3, motor sensory intact, balance intact, tandem pass Extremities: Normal to inspection, range of motion intact . Coding Level of Care Code Est Pt Level 4 (08311) Est Pt Prev Care 18-39y(12044) Diagnoses Encounter for general adult medical examination with abnormal findings Z00.01 Facial rash R21 Calculus of left kidney N20.0 Screening-pulmonary TB Z11.1 Class 2 obesity due to excess calories without serious comorbidity with body mass index (BMI) of 38.0 to 38.9 in adult E66.09; Z68.38 Body mass index: BMI 38.0-38.9 Obesity classification: adult class 2 (BMI 35 - 39.9) Serious obesity comorbidity presence: without serious comorbidity Additional Codes POONAM-7 Assessment Billing - POONAM-7 Assessment Tool: POONAM-7 Assessment 02266 ([id number]) PHQ-9 - 35750 - PHQ-9 Billing: Yes ([id number]) Assessment & Plan Assessment & Plan (1) Encounter for general adult medical examination with abnormal findings: Code(s): Z00.01 - Encounter for general adult medical examination with abnormal findings Category: Medical (2) Facial rash: Code(s): R21 - Rash and other nonspecific skin eruption Category: Medical (3) Calculus of left kidney: Code(s): N20.0 - Calculus of kidney Category: Medical (4) Screening-pulmonary TB: Code(s): Z11.1 - Encounter for screening for respiratory tuberculosis Category: Medical (5) Obesity due to excess calories: Code(s): E66.09 - Other obesity due to excess calories Category: Medical Qualifiers: Body mass index: BMI 38.0-38.9 Obesity classification: adult class 2 (BMI 35 - 39.9) Serious obesity comorbidity presence: without serious comorbidity Qualified Code(s): E66.09 - Other obesity due to excess calories; Z68.38 - Body mass index [BMI] 38.0-38.9, adult Plan Patient Instructions - Go to the lab to have your blood drawn today. The tests have been ordered as non-fasting. - You will be given a referral to see a draw frame operator for your facial rash. You should see them if the rash gets worse. - Please schedule an appointment with an OBGYN for a check-up. - Continue your efforts to lose weight. A loss of 50 pounds would be a good goal. - You will receive a letter today as proof that you had a physical exam. - if you started having left flank pain let me know Follow-up 1 year physical exam Orders: Orders TSH reflex Free T4 Today E66.09 - Other obesity due to excess calories, Z00.01 - Encounter for general adult medical examination with abnormal findings, Z11.1 - Encounter for screening for respiratory tuberculosis, Z68.38 - Body mass index [BMI] 38.0-38.9, adult LDL Cholesterol Direct Today E66.09 - Other obesity due to excess calories, Z00.01 - Encounter for general adult medical examination with abnormal findings, Z68.38 - Body mass index [BMI] 38.0-38.9, adult Comprehensive Met. Panel Today E66.09 - Other obesity due to excess calories, Z00.01 - Encounter for general adult medical examination with abnormal findings, Z68.38 - Body mass index [BMI] 38.0-38.9, adult Complete Blood Count Auto Diff Today E66.09 - Other obesity due to excess calories, Z00.01 - Encounter for general adult medical examination with abnormal findings, Z11.1 - Encounter for screening for respiratory tuberculosis, Z68.38 - Body mass index [BMI] 38.0-38.9, adult T Spot TB Today E66.09 - Other obesity due to excess calories, Z00.01 - Encounter for general adult medical examination with abnormal findings, Z11.1 - Encounter for screening for respiratory tuberculosis, Z68.38 - Body mass index [BMI] 38.0-38.9, adult Anti DNA DS Antibody Today R76.89 - Other specified abnormal immunological findings in serum Referrals Dermatology Referral R21 - Rash and other nonspecific skin eruption
--- OUTSIDE RECORDS SUMMARY | 2025-10-17 13:17 | XMS_ITS | Clinical Summary ---
Author Organization [facility] Address [address] [place], [place] [id number] Phone Care Team Providers Care Road Grader Name Role Phone Lashay Roach MD Primary Care Provider [phone] Allergies No known active allergies Medications morphine (MSIR) 15 MG tablet Take 1 tablet (15 mg total) by mouth every 6 (six) hours as needed for pain (specific location in comments). Partial fill ok 8 tablet 06/25/2023 Active Immunizations Immunization Administration Dates Next Due COVID-19 (Pre-08/09) Pfizer Vaccine, mRNA, PF Influenza, Unspecified Formulation 08/01/2023 Social History Tobacco Use Types Packs/Day Years Used Date Smoking Tobacco: Never Assessed Education Answer Date Recorded Are you interested in more education? Not on mike e 06/25/2023 Are you concerned about learning? Not on file 06/25/2023 No 06/25/2023 No 06/25/2023 Digital Access Answer Date Recorded No 06/25/2023 No 06/25/2023 Reliable internet access at home? Not on file 06/25/2023 Device with a working camera? Not on file Intimate Partner Violence Answer Date R ecorded Are you denied basic needs s uch as food, clothing, or medical care? No 06/25/2023 In the past 12 months have y ou been in a relationship with a person who hurts, threatens, or tries to control you? No 06/25/2023 Are you denied basic needs s uch as food, clothing, or medical care? No 06/25/2023 In the past 12 months have y ou been in a relationship with a person who hurts, threatens, or tries to control you? No 06/25/2023 Comments Unknown Sex and Gender Information Value Date Recorded Sex Assigned at Not on file Legal Sex Female 4:09 PM EDT Gender Identity Not on file Sexual Orientation Not on file Last Filed Vital Signs Vital Sign Reading Time Taken Comments Blood Pressure 120/81 06/25/2023 7:30 PM EDT Pulse 85 06/25/2023 6:55 PM EDT Temperature 35.1 C (95.2 F) 06/25/2023 5:18 PM EDT Respiratory Rate 20 06/25/2023 5:18 PM EDT Oxygen Saturation 99% 06/25/2023 7:00 PM EDT Inhaled Oxygen Concentration - - Weight 90.7 kg (200 lb) 06/25/2023 5:18 PM EDT Height 154.9 cm (5' 1 ) 06/25/2023 5:18 PM EDT Body Mass Index 37.79 06/25/2023 5:18 PM EDT Plan of Treatment Health Maintenance Due Date Last Done Comments Adult Td,Tdap Booster 1993 DEPRESSION SCREENING 2005 SMOKING Hx and SMOKELESS TOB ACCO SCREENING 2006 HEPATITIS C SCREENING 2011 HIV ONE-TIME SCREENING (18-6 5 YEARS) 2011 PAP SMEAR 2014 INFLUENZA VACCINE (#1) 2025 08/01/2023 COVID-19 VACCINE (2 6 season) 2025 05/27/2022 HEPATITIS A VACCINES Aged Out No long er eligible based on patient's age to complete this topic HIB VACCINES Aged Out No longer eligi ble based on patient's age to complete this topic MENINGOCOCCAL VACCINES (ACWY) Aged Out No longer eligible based on patient's age to complete this topic MENINGOCOCCAL VACCINES (B) Aged Out N o longer eligible based on patient's age to complete this topic PNEUMOCOCCAL VACCINES (0-49 years) Aged Out No longer eligible based on patient's age to complete this topic Medical Devices Not on file Insurance ACO ACO ACO ACO ACO ACO Care Teams Road Grader Relationship Specialty Start Date End Date Lashay Roach MD [address] [place] [address] PCP - General 06/25/23 Additional Source Comments The information contained in this document represents components of the legal health record. It is not the complete legal health record.[facility]
--- OUTSIDE RECORDS SUMMARY | 2025-10-17 13:17 | XMS_ITS | Encounter Summary ---
Author Organization [facility] Address [address] [place], [place] [id number] Phone Care Team Providers Care Furniture Detailer Name Role Phone Lashay Roach MD Primary Care Provider [phone] Encounter Details Date Type Department Care Team (Late st Contact Info) Description 06/25/2023 Procedure Pass [facility], Ct Scan - [address] [id number] Social History Tobacco Use Types Packs/Day Years [...] on file Sexual Orientation Not on file documented as of this encounter Plan of Treatment Not on file documented as of this encounter Visit Diagnoses Not on filedocumented in this encounter Care Teams Furniture Detailer Relationship Specialty Start Date End Date Lashay Roach MD [facility] [place] [address] PCP - General 06/25/23 documented as of this encounter Additional Source Comments The information contained in this document represents components of the legal health record. It is not the complete legal health record[facility]
== END 2025-10-17 13:38 | disposition home or self-care (01) ==
LOC: HO.HMCC 11:32
PROVIDERS: PCP Internal Medicine; Visit Provider Internal Medicine
DX: Z00.01 Encounter for general adult medical examination with abnormal findings (principal); E66.09 Other obesity due to excess calories; Z68.38 Body mass index [BMI] 38.0-38.9, adult; R21 Rash and other nonspecific skin eruption; N20.0 Calculus of kidney; Z11.1 Encounter for screening for respiratory tuberculosis

== ENCOUNTER → 2025-10-17 11:31 | Outpatient (BNVA) | payer OTHER, SELFPAY | PROVIDERS: PCP Internal Medicine; Visit Provider Internal Medicine | DX: Z00.01 Encounter for general adult medical examination with abnormal findings (principal); R21 Rash and other nonspecific skin eruption; N20.0 Calculus of kidney; E66.09 Other obesity due to excess calories; Z68.38 Body mass index [BMI] 38.0-38.9, adult; Z13.31 Encounter for screening for depression; Z13.39 Encounter for screening examination for other mental health and behavioral disorders | CPT/HCPCS: 96127; 99395 ==